=== PATIENT | female | born 1985 | race African-American/Black ===

== ENCOUNTER 2017-05-08 22:09 | Emergency (ER) | payer SELFPAY ==
--- NOTE | 2017-05-08 22:39 | RADIOLOGY REPORT (SQ) ---
EXAM DESCRIPTION: CHEST SINGLE VIEW COMPLETED DATE/TIME: 05/08/2017 10:31 pm REASON FOR STUDY: SOB COMPARISON: None. EXAM PARAMETERS: NUMBER OF VIEWS: One view. TECHNIQUE: Single frontal radiographic view of the chest acquired. RADIATION DOSE: NA LIMITATIONS: None. FINDINGS: LUNGS AND PLEURA: No opacities, masses or pneumothorax. No pleural effusion. MEDIASTINUM AND HILAR STRUCTURES: No masses. Contour normal. HEART AND VASCULAR STRUCTURES: Heart normal in size. Normal vasculature. BONES: No acute findings. HARDWARE: None in the chest. OTHER: No other significant finding. IMPRESSION: NO ACUTE RADIOGRAPHIC FINDING IN THE CHEST. TECHNICAL DOCUMENTATION: JOB ID: [id number] [employer]- All Rights Reserved
[2017-05-08] MEDS ORDERED: LORAZEPAM INJ 2 MG/1 ML VIAL IV ONE (23:10)
--- NOTE | 2017-05-08 23:31 | ER Document Report ---
ED General - General Chief Complaint: Shortness Of Breath Stated Complaint: SHORTNESS OF BREATH Time Seen by Provider: 05/08/17 23:05 Notes: Patient is a 31-year-old female presents with complaint of difficulty breathing. No chest pain. Symptoms started approximately an hour prior to arrival. She said she had similar symptoms several months ago she told it could potentially be anxiety. She is on Depakote shot. She does not smoke. She takes no other medications. She denies any other medical problems. She denies history of asthma. She has not had any wheezing. She denies chest pain. She denies any recent leg pain or leg swelling. No recent surgeries. No other complaints at this time. TRAVEL OUTSIDE OF THE [place] IN LAST 30 DAYS: No - Related Data Allergies/Adverse Reactions: No Known Allergies Allergy (Unverified 05/08/17 22:15) Past Medical History - Social History Smoking Status: Never Smoker Frequency of alcohol use: None Drug Abuse: None Family History: Reviewed & Not Pertinent Patient has suicidal ideation: No Patient has homicidal ideation: No Renal/ Medical History: Denies: Hx Peritoneal Dialysis Review of Systems - Review of Systems Notes: My Normal Review Basic REVIEW OF SYSTEMS: CONSTITUTIONAL : Denies fever, chills, or sweats. Denies recent illness. EENT: Denies eye, ear, throat, or mouth pain or symptoms. Denies nasal or sinus congestion. CARDIOVASCULAR: Denies chest pain. RESPIRATORY: Patient feels short of breath. GASTROINTESTINAL: Denies abdominal pain. Denies nausea, vomiting, or diarrhea. MUSCULOSKELETAL: Denies neck or back pain or joint pain or swelling. SKIN: Denies rash or skin lesions. NEUROLOGICAL: Denies altered mental status or loss of consciousness. Denies headache. Denies weakness or paralysis or loss of use of either side. Denies problems with gait or speech. Denies sensory or motor loss. PSYCHIATRIC: Denies anxiety or stress or depression. ALL OTHER SYSTEMS REVIEWED AND NEGATIVE. Physical Exam - Vital signs Vitals: Temp Pulse Resp BP Pulse Ox 98.3 F 112 H 22 H 148/74 H 100 05/08/17 22:13 05/08/17 22:13 05/08/17 22:13 05/08/17 22:13 05/08/17 22:13 - Notes Notes: General Appearance: Well nourished, alert, cooperative, no acute distress, no obvious discomfort. Patient has some mild tachypnea. She does appear a little bit anxious. Vitals: reviewed, See vital signs table. Head: no swelling or tenderness to the head Eyes: PERRL, EOMI, Conjuctiva clear Mouth: No decreasd moisture Neck: Supple, no neck tenderness Lungs: No wheezing, No rales, No rhonci, No accessory muscle use, good air exchange bilaterally. Heart: tachycardiac rate, Regular rythm, No murmur, no rub Abdomen: Normal BS, soft, No rigidity, No abdominal tenderness, No guarding, no rebound, no abdominal masses, no organomegaly Extremities: strength 5/5 in all extremities, good pulses in all extremities, no swelling or tenderness in the extremities, no edema. Skin: warm, dry, appropriate color, no rash Neuro: speech clear, oriented x 3, normal affect, responds appropriately to questions. Course - Re-evaluation Re-evalutation: 05/09/17 00:23 On reevaluation patient is resting comfortably. I did place her on a monitor. When I was talking to her and she is awake and resting in her room her heart rate is 80s. I going to tell her that everything was negative for heart rate temporarily went up to the low 100s but then came back down to the 80s and 90s. I did obtain a d-dimer because of tachycardia and the fact that she is on Depo -Provera and this was negative. She has no other symptoms or risk factors to suggest PE. She has no chest pain. She has no recent surgeries. No leg pain or leg swelling. No previous history of DVT or PE. She is not a smoker. At this time I suspect this could be related to some stress and anxiety. I will place her on Vistaril. I take I told her to take only as needed. I informed her that might make her sleepy. I encouraged her return to ER if she feels that she has recurrence of her symptoms or feels unwell. Patient agrees with plan will be discharged home. Dictation of this chart was performed using voice recognition software; therefore, there may be some unintended grammatical errors. - Vital Signs Vital signs: Temp Pulse Resp BP Pulse Ox 98.3 F 112 H 21 H 148/74 H 100 05/08/17 22:13 05/08/17 22:13 05/09/17 00:00 05/08/17 22:13 05/09/17 00:00 - Laboratory Result Diagrams: 05/08/17 23:23 05/08/17 23:23 Laboratory results interpreted by me: 05/08/17 23:23 Potassium 3.5 L - EKG Interpretation by Me Additional EKG results interpreted by me: 05/08/17 23:34 EKG is reviewed and interpreted by me. EKG shows normal sinus rhythm with rate [address] segment elevation or depression. No ischemic T-wave inversions. VA interval, QRS duration, QTc intervals are within normal range. No old EKG available for comparison. Discharge - Discharge Clinical Impression: Dyspnea Qualifiers: Dyspnea type: unspecified Qualified Code(s): R06.00 - Dyspnea, unspecified Condition: Good Disposition: HOME, SELF-CARE Instructions: Family Physicians / Practices Additional Instructions: Please take the prescribed medication as needed. Please return to the ER immediately if you have chest pain, worsening difficulty breathing, any wheezing , fevers, or if you feel that you are worsening in anyway. The prescribed medication may make you sleepy so do not drive after taking it. Please follow up with your doctor in 3-4 days for reevaluation. If you do not have a doctor I have provided a lost of local doctors. Prescriptions: Hydroxyzine Pamoate [Vistaril 25 mg Capsule] 25 mg PO TID PRN #20 capsule PRN Reason: Forms: Return to Work
[2017-05-08 23:42] LABS: ABSOLUTE LYMPHOCYTES (AUTO) 1.5 10^3/uL (0.5-4.7); ABSOLUTE MONOCYTES (AUTO) 0.5 10^3/uL (0.1-1.4); ABSOLUTE NEUT (AUTO) 2.3 10^3/uL (1.7-8.2); BASOPHILS % (AUTO) 0.4 % (0-2); EOSINOPHILS % (AUTO) 1.1 % (0-6); HEMATOCRIT 39.3 % (36.0-47.0); HEMOGLOBIN 13.7 g/dL (12.0-15.5); HGB HCT DIFFERENCE 1.8; LYMPHOCYTES % (AUTO) 34.4 % (13-45); MEAN CORPUSCULAR HEMOGLOBIN 32.1 pg (27.0-33.4); MEAN CORPUSCULAR HGB CONC 34.9 g/dL (32.0-36.0); MEAN CORPUSCULAR VOLUME 92 fl (80-97); MONOCYTES % (AUTO) 10.7 % (3-13); RED BLOOD COUNT 4.28 10^6/uL (3.72-5.28); RED CELL DISTRIBUTION WIDTH 12.4 % (11.5-14.0); SEGMENTED NEUTROPHILS % (AUTO) 53.4 % (42-78); WHITE BLOOD COUNT 4.4 10^3/uL (4.0-10.5)
[2017-05-08 23:51] LABS: ALANINE AMINOTRANSFERASE 38 U/L (9-52); ALBUMIN 4.8 g/dL (3.5-5.0); ALKALINE PHOSPHATASE 95 U/L (38-126); ANION GAP 13 (5-19); ASPARTATE AMINO TRANSFERASE 30 U/L (14-36); BILIRUBIN,DIRECT 0.4 mg/dL (0.0-0.4); BILIRUBIN,TOTAL 0.8 mg/dL (0.2-1.3); BLOOD UREA NITROGEN 12 mg/dL (7-20); CALCIUM 10.1 mg/dL (8.4-10.2); CARBON DIOXIDE 25 mmol/L (22-30); CHLORIDE 104 mmol/L (98-107); CREATININE RESULT 0.86 mg/dL (0.52-1.25); GLUCOSE 106 mg/dL (75-110); POTASSIUM 3.5 mmol/L (3.6-5.0); SODIUM 142.4 mmol/L (137-145); TOTAL PROTEIN 7.8 g/dL (6.3-8.2)
[2017-05-09 00:42] VITALS: BP 144/95
--- NOTE | 2017-05-09 07:59 | EKG REPORT ---
SEVERITY:- BORDERLINE ECG - SINUS RHYTHM PROBABLE LEFT ATRIAL ABNORMALITY : Confirmed by: Morteza Milan MD 09-May-2017 07:59:13
== END 2017-05-09 00:44 | disposition home or self-care (01) ==
LOC: ER 22:09
DX: R06.02 Shortness of breath (principal); R00.0 Tachycardia, unspecified; Z79.899 Other long term (current) drug therapy
CPT/HCPCS: 93005; 99285; 96374; 36415; 84703; 85025; 80053; 85379; 71010; 93010; J2060

== ENCOUNTER 2017-07-21 04:22 | Emergency (ER) | payer SELFPAY ==
[2017-07-21] MEDS ORDERED: HYDROXYZINE PAMOATE 25 MG CAPSULE (4 CAP/ER DISP) PO PRN (06:29)
--- NOTE | 2017-07-21 06:33 | ER Document Report ---
ED General - General Chief Complaint: Anxiety Stated Complaint: PANIC ATTACK,ANXIETY Time Seen by Provider: 07/21/17 06:22 TRAVEL OUTSIDE OF THE [place] IN LAST 30 DAYS: No - HPI Patient complains to provider of: Anxiety Notes: Patient coming in for concern of anxiety. Patient states was on anxiety medication before. States she has been out of his medication patient denies any social issues denies any homicidal suicidal ideation patient is resting, lying on the bed with upon my evaluation. - Related Data Allergies/Adverse Reactions: No Known Allergies Allergy (Unverified 05/08/17 22:15) Past Medical History - Social History Smoking Status: Never Smoker Chew tobacco use (# tins/day): No Frequency of alcohol use: Social Drug Abuse: None Family History: Reviewed & Not Pertinent Patient has suicidal ideation: No Patient has homicidal ideation: No Renal/ Medical History: Denies: Hx Peritoneal Dialysis Review of Systems - Review of Systems Constitutional: No symptoms reported EENT: No symptoms reported Cardiovascular: No symptoms reported Respiratory: No symptoms reported Gastrointestinal: No symptoms reported Genitourinary: No symptoms reported Female Genitourinary: No symptoms reported Musculoskeletal: No symptoms reported Skin: No symptoms reported Hematologic/Lymphatic: No symptoms reported Neurological/Psychological: Other -: Yes All other systems reviewed and negative - Anxiety Physical Exam - Vital signs Vitals: Temp Pulse Resp BP Pulse Ox 98.3 F 97 20 151/113 H 100 07/21/17 04:28 07/21/17 04:28 07/21/17 04:28 07/21/17 04:28 07/21/17 04:28 Interpretation: Normal - General General appearance: Appears well, Alert - HEENT Head: Normocephalic, Atraumatic Eyes: Normal Pupils: PERRL - Respiratory Respiratory status: No respiratory distress Chest status: Nontender Breath sounds: Normal Chest palpation: Normal - Cardiovascular Rhythm: Regular Heart sounds: Normal auscultation Murmur: No - Abdominal Inspection: Normal Distension: No distension Bowel sounds: Normal Tenderness: Nontender Organomegaly: No organomegaly - Back Back: Normal, Nontender - Extremities General upper extremity: Normal inspection, Nontender, Normal color, Normal ROM , Normal temperature General lower extremity: Normal inspection, Nontender, Normal color, Normal ROM , Normal temperature, Normal weight bearing. No: Enrrique's sign - Neurological Neuro grossly intact: Yes Cognition: Normal Orientation: AAOx4 Jayne Coma Scale Eye Opening: Spontaneous Jayne Coma Scale Verbal: Oriented Jean Coma Scale Motor: Obeys Commands Jean Coma Scale Total: 15 Speech: Normal Motor strength normal: LUE, RUE, LLE, RLE Sensory: Normal - Psychological Associated symptoms: Normal affect, Normal mood - Skin Skin Temperature: Warm Skin Moisture: Dry Skin Color: Normal Course - Re-evaluation Re-evalutation: 07/21/17 15:29 Patient is homicidal suicidal ideation will discharge patient home at this time on Vistaril. Patient encouraged follow-up with psychiatric providers. - Vital Signs Vital signs: Temp Pulse Resp BP Pulse Ox 98.3 F 78 20 148/101 H 98 07/21/17 04:28 07/21/17 06:38 07/21/17 06:38 07/21/17 06:38 07/21/17 06:38 Discharge - Discharge Clinical Impression: Anxiety Condition: Good Disposition: HOME, SELF-CARE Instructions: Anxiety ([facility]), Insomnia ([facility]) Additional Instructions: Your evaluation today shows no acute signs of infection or critical pathology. To help with her anxiety I will prescribe you Vistaril. He may take 1-2 tablets at nighttime to aid in anxiety and also help with sleeping. Please follow-up with providers listed. Prescriptions: Hydroxyzine Pamoate [Vistaril 25 mg Capsule] 25 - 50 mg PO QHS PRN #20 capsule PRN Reason: Forms: Return to Work
[2017-07-21 06:39] VITALS: BP 148/101
== END 2017-07-21 06:38 | disposition home or self-care (01) ==
LOC: ER 04:22
DX: F41.9 Anxiety disorder, unspecified (principal)
CPT/HCPCS: 99283; J3490

== ENCOUNTER 2017-08-16 19:59 | Emergency (ER) | payer SELFPAY ==
[2017-08-16] MEDS ORDERED: HYDROXYZINE PAMOATE 25 MG CAPSULE PO ONE (21:20)
--- NOTE | 2017-08-16 21:21 | ER Document Report ---
HPI - HPI Patient complains to provider of: anxiety Pain Level: Denies Context: Patient is a 32-year-old female who presents emergency department with an acute anxiety attack. Patient states that she was not sure what her trigger was but that she ran out of her Vistaril so she presented here. She denies any suicidal or homicidal ideations. States she does have an established follow-up appointment at the beginning of August with her new provider. She states that she is not on any long-term chronic medications at home - REPRODUCTIVE LMP: Depo Past Medical History - Social History Smoking Status: Current Every Day Smoker Family History: Reviewed & Not Pertinent Renal/ Medical History: Denies: Hx Peritoneal Dialysis Vertical Provider Document - CONSTITUTIONAL Agree With Documented VS: Yes Notes: PHYSICAL EXAM GENERAL: Alert, interacts well. LUNGS: Clear to auscultation bilaterally, no wheezes, rales, or rhonchi. No respiratory distress. HEART: Regular rate and rhythm. No murmurs, gallops, or rubs. EXTREMITIES: Moves all 4 extremities spontaneously. No edema, radial and dorsalis pedis pulses 2/4 bilaterally. No cyanosis. NEUROLOGICAL: Alert and oriented x4. Normal speech. PSYCH: Normal affect, tearful mood but alert and able to focus and speaking clear sentences. SKIN: Warm, dry, normal turgor. No rashes or lesions noted. - INFECTION CONTROL TRAVEL OUTSIDE OF THE [place] IN LAST 30 DAYS: No - RESPIRATORY O2 Sat by Pulse Oximetry: 100 Course - Re-evaluation Re-evalutation: 08/16/17 21:00 Patient is a 32-year-old female is hemodynamically stable, no acute distress and afebrile. Presentation is consistent with acute on chronic anxiety. Patient denies any suicidal homicidal ideations. has secured follow-up. Will discharge home with a short course of as needed Vistaril otherwise discussed strict return precautions patient is stable for discharge home. - Vital Signs Vital signs: Temp Pulse Resp BP Pulse Ox 98.9 F 97 18 128/84 H 100 08/16/17 20:30 08/16/17 20:30 08/16/17 20:30 08/16/17 20:30 08/16/17 20:30 Discharge - Discharge Clinical Impression: Anxiety Condition: Good Disposition: HOME, SELF-CARE Instructions: Anxiety ([facility]) Prescriptions: Hydroxyzine Pamoate [Vistaril] 25 mg PO BID #15 capsule Referrals: [facility] [Provider Group] - Follow up as needed
[2017-08-16 21:48] VITALS: BP 138/86
== END 2017-08-16 21:48 | disposition home or self-care (01) ==
LOC: ER 19:59
DX: F41.9 Anxiety disorder, unspecified (principal); F17.200 Nicotine dependence, unspecified, uncomplicated
CPT/HCPCS: 99283

== ENCOUNTER 2017-08-30 18:16 | Emergency (ER) | payer SELFPAY ==
--- NOTE | 2017-08-30 19:43 | ER Document Report ---
ED Medical Screen (RME) - General Chief Complaint: Abdominal Pain Stated Complaint: RIGHT SIDE PAIN Time Seen by Provider: 08/30/17 19:42 Notes: pt with abd pain/dysuria/discharge for 2 days TRAVEL OUTSIDE OF THE [place] IN LAST 30 DAYS: No - Related Data Allergies/Adverse Reactions: No Known Allergies Allergy (Verified 08/30/17 18:18) Past Medical History - Social History Chew tobacco use (# tins/day): No Frequency of alcohol use: Occasional Drug Abuse: None Renal/ Medical History: Denies: Hx Peritoneal Dialysis Physical Exam - Vital signs Vitals: Temp Pulse Resp BP Pulse Ox 97.8 F 107 H 20 146/88 H 100 08/30/17 18:34 08/30/17 18:34 08/30/17 18:34 08/30/17 18:34 08/30/17 18:34 Course - Vital Signs Vital signs: Temp Pulse Resp BP Pulse Ox 97.8 F 107 H 20 146/88 H 100 08/30/17 18:34 08/30/17 18:34 08/30/17 18:34 08/30/17 18:34 08/30/17 18:34
[2017-08-30 20:35] LABS: APPEARANCE,URINE SLIGHTLY-CLOUDY; BILIRUBIN,URINE NEGATIVE (NEGATIVE); COLOR,URINE YELLOW; GLUCOSE, URINE NEGATIVE (NEGATIVE); KETONES,URINE TRACE mg/dL (NEGATIVE); LEUKOCYTE ESTERASE,URINE MODERATE (NEGATIVE); NITRITE,URINE NEGATIVE (NEGATIVE); PROTEIN,URINE NEGATIVE (NEGATIVE); UROBILINOGEN,URINE NEGATIVE mg/dL (<2.0)
[2017-08-30] MEDS ORDERED: CIPROFLOXACIN HCL 500 MG TABLET PO ONE (21:12)
[2017-08-30] MEDS ORDERED: IBUPROFEN 800 MG TABLET PO ONE (21:13)
--- NOTE | 2017-08-30 21:14 | ER Document Report ---
HPI - HPI Pain Level: 3 Context: Patient is a 32-year-old female presents emergency department complaining of pyuria, hematuria that started yesterday.She admits to pain with urination, urgency, frequency but denies any flank pain, nausea, vomiting, abdominal pain, diarrhea, fevers or chills. She denies any vaginal discharge, vaginal pain. Previous tubal ligation. Last menstrual period 2 weeks ago Past Medical History - Social History Smoking Status: Never Smoker Chew tobacco use (# tins/day): No Frequency of alcohol use: Occasional Drug Abuse: None Family History: Reviewed & Not Pertinent Patient has suicidal ideation: No Patient has homicidal ideation: No Renal/ Medical History: Denies: Hx Peritoneal Dialysis Vertical Provider Document - CONSTITUTIONAL Agree With Documented VS: Yes Notes: PHYSICAL EXAM GENERAL: Alert, interacts well. LUNGS: Clear to auscultation bilaterally, no wheezes, rales, or rhonchi. No respiratory distress. HEART: Regular rate and rhythm. No murmurs, gallops, or rubs. ABDOMEN: Soft, nondistended, mild suprapubic tenderness. No guarding, rebound, or rigidity.. Bowel sounds present in all 4 quadrants. Female exam deferred EXTREMITIES: Moves all 4 extremities spontaneously. No edema, radial and dorsalis pedis pulses 2/4 bilaterally. No cyanosis. NEUROLOGICAL: Alert and oriented x4. Normal speech. PSYCH: Normal affect, normal mood. SKIN: Warm, dry, normal turgor. No rashes or lesions noted. - INFECTION CONTROL TRAVEL OUTSIDE OF THE [place] IN LAST 30 DAYS: No - RESPIRATORY O2 Sat by Pulse Oximetry: 100 Course - Re-evaluation Re-evalutation: 08/30/17 21:13 Patient is a 32-year-old female is hemodynamically stable, no acute distress and afebrile. Patient presents with symptoms consistent with an acute cystitis. Vitals wnl. No history of fever, flank pain, or constitution symptoms to suggest ascending infection at this time. Patient is well in appearance, tolerating oral intake without difficulty. No focal abdominal tenderness to suggest acute appendicitis, biliary pathology, acute pancreatitis, tubo-ovarian abscesses, or pelvic inflammatory disease. Patient will be started on antibiotics at this time. A culture has been sent. They will be discharged with return precautions and follow-up recommendations. - Vital Signs Vital signs: Temp Pulse Resp BP Pulse Ox 97.8 F 107 H 20 146/88 H 100 08/30/17 18:34 08/30/17 18:34 08/30/17 18:34 08/30/17 18:34 08/30/17 18:34 - Laboratory Laboratory results interpreted by me: 08/30/17 19:47 Urine Ketones TRACE H Urine Blood MODERATE H Ur Leukocyte Esterase MODERATE H Discharge - Discharge Clinical Impression: UTI (urinary tract infection) Qualifiers: Urinary tract infection type: acute cystitis Hematuria presence: with hematuria Qualified Code(s): N30.01 - Acute cystitis with hematuria Condition: Good Disposition: HOME, SELF-CARE Additional Instructions: Your urine shows findings consistent with a urinary tract infection. Please take all the antibiotics as directed even if your symptoms have improved. Please follow-up with your primary care physician as needed. Return to emergency room if you develop fever >101F, persistent vomiting, become lethargic , have severe pain in your sides, or any other symptoms that are concerning to you. Prescriptions: Ciprofloxacin HCl [Cipro 250 mg Tablet] 1 tab PO BID #10 tab Phenazopyridine HCl [Pyridium 200 mg Tablet] 200 mg PO TID #15 tablet Referrals: CAMILLE LY DO [NO LOCAL MD] - Follow up in 3-5 days
[2017-08-30 21:33] VITALS: BP 132/74
== END 2017-08-30 21:33 | disposition home or self-care (01) ==
LOC: ER 18:16
DX: N30.01 Acute cystitis with hematuria (principal); Z98.51 Tubal ligation status
CPT/HCPCS: 81001; 81025; 99284

== ENCOUNTER 2018-01-18 17:05 | Emergency (ER) | payer SELFPAY ==
[2018-01-18] MEDS ORDERED: CLINDAMYCIN HCL 150 MG CAPSULE PO ONE (18:51)
--- NOTE | 2018-01-18 18:57 | ER Document Report ---
ED General - General Chief Complaint: Breast Problem Stated Complaint: BREAST PAIN Time Seen by Provider: 01/18/18 18:15 Mode of Arrival: Ambulatory Information source: Patient TRAVEL OUTSIDE OF THE [place] IN LAST 30 DAYS: No - HPI Notes: Patient is a pleasant 32-year-old black female presents to the emergency department with report of the left breast nipple abscess that she has noticed for the last 2 days. The patient denies any oral contact to the area and reports no other trauma, but she has had her nipples pierced bilaterally for the last 8 months. The patient denies any fever or chills or chest pain or nausea or vomiting. She reports no acute other trauma to the breast region. The patient reports no history of abscess or MRSA exposure. - Related Data Allergies/Adverse Reactions: No Known Allergies Allergy (Verified 01/18/18 17:07) Past Medical History - General Information source: Patient - Social History Smoking Status: Former Smoker Frequency of alcohol use: Rare Drug Abuse: None Lives with: Family Family History: Reviewed & Not Pertinent Patient has suicidal ideation: No Patient has homicidal ideation: No Renal/ Medical History: Denies: Hx Peritoneal Dialysis Review of Systems - Review of Systems -: Yes All other systems reviewed and negative Physical Exam - Vital signs Vitals: Temp Pulse Resp BP Pulse Ox 98.9 F 78 14 132/87 H 100 01/18/18 17:18 01/18/18 17:18 01/18/18 17:18 01/18/18 17:18 01/18/18 17:18 - Notes Notes: Physical exam: HEENT atraumatic normocephalic conjunctiva clear Neck supple nontender no adenopathy Examination of the breasts bilaterally shows no gross evidence for mass or axillary or supraclavicular adenopathy. Patient has bilateral nipple piercing. The right breast is without any focal abnormality. Examination of the left breast shows erythema and a very small 3 mm abscess anterior to the nipple piercing medially. This area is very much subepidermal. No deeper extension noted. Course - Re-evaluation Re-evalutation: 01/18/18 18:54 Following discussion of risks, alternatives, and benefits, the patient agreed to incision and drainage of the superficial breast abscess. The wound area was cleaned with alcohol prep 3 and the piercing itself was cleaned and removed and replaced without any abscess spontaneous drainage, then the abscess was incised very superficially with a #18 needle and minimal amount of purulent material was obtained which was sent for culture and the wound was cleaned again with an alcohol prep. Patient tolerated this well. Complications none. Blood loss negligible. No history of diabetes or deeper extension or systemic infection. Patient was given clindamycin by mouth. 01/18/18 18:55 - Vital Signs Vital signs: Temp Pulse Resp BP Pulse Ox 98.9 F 78 14 132/87 H 100 01/18/18 17:18 01/18/18 17:18 01/18/18 17:18 01/18/18 17:18 01/18/18 17:18 Discharge - Discharge Clinical Impression: Abscess Condition: Stable Disposition: HOME, SELF-CARE Instructions: Abscess ([facility]), Post Incision and Drainage Additional Instructions: Clean the area with diluted hydrogen peroxide once a day. Return to the emergency department in case of fever, chills, worsening redness or swelling. Take ibuprofen as needed for pain. Prescriptions: Clindamycin HCl 300 mg PO TID #24 capsule
[2018-01-18 19:07] VITALS: BP 128/88
== END 2018-01-18 19:06 | disposition home or self-care (01) ==
LOC: ER 17:05
PROC: 0H9UXZZ (ICD-10-PCS; principal; 2018-01-18)
DX: N61.1 Abscess of the breast and nipple (principal); N64.4 Mastodynia
CPT/HCPCS: 87070; 87075; 87077; 87205; 99283

== ENCOUNTER 2018-04-01 17:18 | Emergency (ER) | payer SELFPAY ==
[2018-04-01 17:37] VITALS: BP 108/58
[2018-04-01 18:32] LABS: ABSOLUTE EOSINOPHILS # (AUTO) 0.1 10^3/uL (0.0-0.6); ABSOLUTE MONOCYTES (AUTO) 0.5 10^3/uL (0.1-1.4); BASOPHILS % (AUTO) 0.6 % (0-2); EOSINOPHILS % (AUTO) 1.6 % (0-6); HEMATOCRIT 30.5 % (36.0-47.0); HEMOGLOBIN 10.8 g/dL (12.0-15.5); LYMPHOCYTES % (AUTO) 18.4 % (13-45); MEAN CORPUSCULAR HEMOGLOBIN 31.4 pg (27.0-33.4); MEAN CORPUSCULAR HGB CONC 35.4 g/dL (32.0-36.0); MEAN CORPUSCULAR VOLUME 89 fl (80-97); MONOCYTES % (AUTO) 8.7 % (3-13); PLATELET COUNT 215 10^3/uL (150-450); RED BLOOD COUNT 3.45 10^6/uL (3.72-5.28); RED CELL DISTRIBUTION WIDTH 12.9 % (11.5-14.0); SEGMENTED NEUTROPHILS % (AUTO) 70.7 % (42-78); TOTAL CELLS COUNTED % (AUTO) 100 %; WHITE BLOOD COUNT 5.7 10^3/uL (4.0-10.5)
[2018-04-01 18:47] LABS: APPEARANCE,URINE SLIGHTLY-CLOUDY; BILIRUBIN,URINE NEGATIVE (NEGATIVE); COLOR,URINE YELLOW; GLUCOSE, URINE NEGATIVE (NEGATIVE); KETONES,URINE NEGATIVE (NEGATIVE); LEUKOCYTE ESTERASE,URINE NEGATIVE (NEGATIVE); NITRITE,URINE NEGATIVE (NEGATIVE); PROTEIN,URINE NEGATIVE (NEGATIVE)
--- NOTE | 2018-04-01 19:11 | ER Document Report ---
ED General - General Chief Complaint: Vaginal Bleeding Stated Complaint: ABDOMINAL PAIN Time Seen by Provider: 04/01/18 18:06 Mode of Arrival: Ambulatory Information source: Patient Notes: Is a 32-year-old female who presents to the emergency room with abdominal cramping along with some small amount of vaginal spotting. Patient states that she has had a positive test. She does not know how far along she is. She is 5 para 4. She denies any nausea, vomiting. TRAVEL OUTSIDE OF THE [place] IN LAST 30 DAYS: No - HPI Onset: Last week Onset/Duration: Gradual Quality of pain: No pain Severity: None Pain Level: Denies Associated symptoms: denies: Chest pain, Shortness of breath Exacerbated by: Denies Relieved by: Denies Similar symptoms previously: Yes Recently seen / treated by doctor: No - Related Data Allergies/Adverse Reactions: No Known Allergies Allergy (Verified 01/18/18 17:07) Past Medical History - General Information source: Patient - Social History Smoking Status: Never Smoker Cigarette use (# per day): No Chew tobacco use (# tins/day): No Frequency of alcohol use: None Drug Abuse: None Lives with: Family Family History: Reviewed & Not Pertinent Patient has suicidal ideation: No Patient has homicidal ideation: No - Medical History Medical History: Negative Renal/ Medical History: Denies: Hx Peritoneal Dialysis Surgical Hx: Negative Review of Systems - Review of Systems Constitutional: denies: Chills, Fever EENT: No symptoms reported Cardiovascular: No symptoms reported Respiratory: No symptoms reported Gastrointestinal: No symptoms reported Genitourinary: No symptoms reported Female Genitourinary: See HPI Musculoskeletal: No symptoms reported Skin: No symptoms reported Hematologic/Lymphatic: No symptoms reported Neurological/Psychological: No symptoms reported Physical Exam - Vital signs Vitals: Temp Pulse Resp BP Pulse Ox 98.8 F 86 17 108/58 L 100 04/01/18 17:35 04/01/18 17:35 04/01/18 17:35 04/01/18 17:35 04/01/18 17:35 Notes: Physical exam: GENERAL: She is alert and oriented x3, appears quite comfortable in bed doing work in a book. HEAD: Atraumatic, normocephalic. EYES: Pupils equal round and reactive to light, extraocular movements intact, sclera anicteric, conjunctiva are normal. ENT: TMs normal, nares patent, oropharynx clear without exudates. Moist mucous membranes. NECK: Normal range of motion, supple without obvious mass or JVD. LUNGS: Breath sounds clear to auscultation bilaterally and equal. No wheezes rales or rhonchi. HEART: Regular rate and rhythm without murmurs, rubs or gallops. ABDOMEN: Soft, normoactive bowel sounds. No tenderness to palpation. No guarding, no rebound. No masses appreciated. Side ultrasound does show a viable intrauterine with positive movement. EXTREMITIES: Normal range of motion, no pitting or edema. No clubbing or cyanosis. NEUROLOGICAL: Cranial nerves II through XII grossly intact. Normal speech, moving all extremities. PSYCH: Normal mood, normal affect. SKIN: Warm, Dry, normal turgor, no rashes or lesions noted. Course - Vital Signs Vital signs: Temp Pulse Resp BP Pulse Ox 98.8 F 86 17 108/58 L 100 04/01/18 17:35 04/01/18 17:35 04/01/18 17:35 04/01/18 17:35 04/01/18 17:35 - Laboratory Result Diagrams: 04/01/18 18:18 04/01/18 18:18 Laboratory results interpreted by me: 04/01/18 04/01/18 04/01/18 18:18 18:18 18:18 RBC 3.45 L Hgb 10.8 L Hct 30.5 L Carbon Dioxide 20 L Glucose 63 L Total Protein 6.2 L Beta HCG, Quant 840867.00 H Urine Urobilinogen 4.0 H - Diagnostic Test Radiology reviewed: Image reviewed, Reports reviewed Discharge - Discharge Clinical Impression: , Cramping Condition: Stable Disposition: HOME, SELF-CARE Additional Instructions: Ultrasound shows the baby is 14 weeks gestation. Baby has a good heartbeat and good movement. Your blood work looked good. I would follow-up with the OB doctor: Bring a copy of today's labs with you. Tylenol for cramping is okay. Return to the emergency room for worsening bleeding or worsening pain.
[2018-04-01 19:36] LABS: ALANINE AMINOTRANSFERASE 17 U/L (9-52); ALBUMIN 3.5 g/dL (3.5-5.0); ALKALINE PHOSPHATASE 51 U/L (38-126); ANION GAP 11 (5-19); ASPARTATE AMINO TRANSFERASE 15 U/L (14-36); BILIRUBIN,DIRECT 0.2 mg/dL (0.0-0.4); BILIRUBIN,TOTAL 0.3 mg/dL (0.2-1.3); BLOOD UREA NITROGEN 11 mg/dL (7-20); CALCIUM 9.2 mg/dL (8.4-10.2); CARBON DIOXIDE 20 mmol/L (22-30); CHLORIDE 106 mmol/L (98-107); GLUCOSE 63 mg/dL (75-110); POTASSIUM 3.8 mmol/L (3.6-5.0); SODIUM 137.1 mmol/L (137-145); TOTAL PROTEIN 6.2 g/dL (6.3-8.2)
--- NOTE | 2018-04-01 20:12 | RADIOLOGY REPORT (SQ) ---
EXAM DESCRIPTION: U/S OB LIMITED COMPLETED DATE/TIME: 04/01/2018 7:56 pm REASON FOR STUDY: cramping, spotting: gest age, cervical length COMPARISON: None. TECHNIQUE: Limited transabdominal grayscale ultrasound for evaluation of specific requested obstetri charanjit parameters. LIMITATIONS: None. FINDINGS: CERVICAL LENGTH: 4.6 cm in length Closed. ELSY: Adequate, largest pocket 3 cm. FHR: 158 beats per minute. PRESENTATION: Variable PLACENTA: Developing anteriorly ANATOMY: Not assessed OTHER: Estimated gestational age by multiple measurements cysts 14 weeks 0 days, estimated due date IMPRESSION: LIMITED OBSTETRICAL ULTRASOUND WITH MEASURED PARAMETERS DELINEATED ABOVE. Trimester of : Second trimester - 13 weeks 1 day to 27 weeks 6 days. TECHNICAL DOCUMENTATION: JOB ID: [id number] [email or web address]- All Rights Reserved Reading location - IP/workstation name: [email or web address]
== END 2018-04-01 22:10 | disposition home or self-care (01) ==
LOC: ER 17:18
DX: O26.899 Other specified pregnancy related conditions, unspecified trimester (principal); R10.9 Unspecified abdominal pain; O26.859 Spotting complicating pregnancy, unspecified trimester; Z3A.00 Weeks of gestation of pregnancy not specified
CPT/HCPCS: 36415; 76815; 80053; 81001; 84702; 85025; 86900; 86901; 99284

== ENCOUNTER 2018-07-12 21:12 | Outpatient (CLI) | payer MEDICAID ==
[2018-07-12 21:49] LABS: APPEARANCE,URINE SLIGHTLY-CLOUDY; BILIRUBIN,URINE NEGATIVE (NEGATIVE); COLOR,URINE YELLOW; GLUCOSE, URINE NEGATIVE (NEGATIVE); KETONES,URINE 20 mg/dL (NEGATIVE); LEUKOCYTE ESTERASE,URINE TRACE (NEGATIVE); NITRITE,URINE NEGATIVE (NEGATIVE); PROTEIN,URINE 30 mg/dL (NEGATIVE); URINE SPECIFIC GRAVITY 1.025
[2018-07-12 22:02] LABS: URINE AMPHETAMINES SCREEN NEGATIVE; URINE BARBITURATES SCREEN NEGATIVE; URINE BENZODIAZEPINES SCREEN NEGATIVE; URINE COCAINE SCREEN NEGATIVE; URINE MARIJUANA (THC) SCREEN NEGATIVE; URINE METHADONE SCREEN NEGATIVE; URINE PHENCYCLIDINE SCREEN NEGATIVE
== END 2018-07-12 22:46 | disposition home or self-care (01) ==
LOC: EDSTATUS 21:17 → LC 21:19
PROVIDERS: ATTEND Obstetrics & Gynecology
PROC: 4A1HXCZ Monitoring of Products of Conception, Cardiac Rate, External Approach (ICD-10-PCS; principal; 2018-07-12)
DX: O47.03 False labor before 37 completed weeks of gestation, third trimester (principal); Z3A.28 28 weeks gestation of pregnancy
CPT/HCPCS: 80307; 81001

== ENCOUNTER 2018-09-19 19:13 | Outpatient (CLI) | payer MEDICAID ==
[2018-09-19 19:38] LABS: APPEARANCE,URINE SLIGHTLY-CLOUDY; BILIRUBIN,URINE NEGATIVE (NEGATIVE); COLOR,URINE YELLOW; GLUCOSE, URINE NEGATIVE (NEGATIVE); KETONES,URINE NEGATIVE (NEGATIVE); LEUKOCYTE ESTERASE,URINE TRACE (NEGATIVE); NITRITE,URINE NEGATIVE (NEGATIVE); PROTEIN,URINE 30 mg/dL (NEGATIVE); URINE SPECIFIC GRAVITY 1.027
[2018-09-19 20:06] LABS: URINE AMPHETAMINES SCREEN NEGATIVE; URINE BARBITURATES SCREEN NEGATIVE; URINE BENZODIAZEPINES SCREEN NEGATIVE; URINE COCAINE SCREEN NEGATIVE; URINE MARIJUANA (THC) SCREEN NEGATIVE; URINE METHADONE SCREEN NEGATIVE; URINE PHENCYCLIDINE SCREEN NEGATIVE
--- NOTE | 2018-09-19 22:14 | Non Stress Test Report ---
Non Stress Test Datetime Report Generated by CPN: 09/19/2018 22:14 DEMOGRAPHIC EGA NST: 38.3 INDICATION Indication for Study: Ordered by Provider MONITORING Monitor Explained: Monitor Explained; Test Explained; Patient Verbalized Understanding Time on Monitor: 09/19/2018 20:38 Time off Monitor: 09/19/2018 22:06 NST Duration: 88 NST INTERVENTIONS NST Interventions: PO Hydration; Reposition Patient Physician Notified NST: Dr. Younger BABY A: [id number] BABY A Movement : Present Contraction Frequency : 7-10 FHR Baseline : 135 Accelerations : 15X15 Decelerations : None Variability : Moderate 6-25bpm NST Review: Meets Criteria for Reactive NST NST Review and Verified By : CHIN Ramsay Results: Reactive NST REPORT Report Trigger: Send Report
== END 2018-09-19 22:11 | disposition home or self-care (01) ==
LOC: LC 19:13
PROVIDERS: ATTEND Obstetrics & Gynecology
PROC: 4A1HXCZ Monitoring of Products of Conception, Cardiac Rate, External Approach (ICD-10-PCS; principal; 2018-09-19)
DX: Z34.93 Encounter for supervision of normal pregnancy, unspecified, third trimester (principal)
CPT/HCPCS: 80307; 81005; 84112

== ENCOUNTER 2018-09-25 08:40 | Outpatient (CLI) | payer MEDICAID ==
[2018-09-25 10:28] LABS: APPEARANCE,URINE CLOUDY; BILIRUBIN,URINE NEGATIVE (NEGATIVE); COLOR,URINE YELLOW; GLUCOSE, URINE NEGATIVE (NEGATIVE); KETONES,URINE NEGATIVE (NEGATIVE); LEUKOCYTE ESTERASE,URINE LARGE (NEGATIVE); NITRITE,URINE NEGATIVE (NEGATIVE); PROTEIN,URINE NEGATIVE (NEGATIVE); URINE SPECIFIC GRAVITY 1.009; UROBILINOGEN,URINE NEGATIVE mg/dL (<2.0)
[2018-09-25 10:35] LABS: URINE AMPHETAMINES SCREEN NEGATIVE; URINE BARBITURATES SCREEN NEGATIVE; URINE BENZODIAZEPINES SCREEN NEGATIVE; URINE COCAINE SCREEN NEGATIVE; URINE MARIJUANA (THC) SCREEN NEGATIVE; URINE METHADONE SCREEN NEGATIVE; URINE PHENCYCLIDINE SCREEN NEGATIVE
== END 2018-09-25 09:57 | disposition home or self-care (01) ==
LOC: LC 08:40
PROVIDERS: ATTEND Obstetrics & Gynecology
PROC: 4A1HXCZ Monitoring of Products of Conception, Cardiac Rate, External Approach (ICD-10-PCS; principal; 2018-09-25)
DX: O47.1 False labor at or after 37 completed weeks of gestation (principal); Z3A.39 39 weeks gestation of pregnancy
CPT/HCPCS: 59025; 80307; 81005

== ENCOUNTER 2018-09-25 19:17 | Outpatient (CLI) | payer MEDICAID ==
--- NOTE | 2018-09-25 19:20 | Non Stress Test Report ---
Non Stress Test Datetime Report Generated by CPN: 09/25/2018 19:19 DEMOGRAPHIC EGA NST: 39.2 INDICATION Indication for Study: Ordered by Provider Indication for Study (NST) Other: Labor Check MONITORING Monitor Explained: Monitor Explained; Test Explained; Patient Verbalized Understanding Time on Monitor: 09/25/2018 08:52 Time off Monitor: 09/25/2018 09:46 NST Duration: 54 NST INTERVENTIONS NST Interventions: Reposition Patient Physician Notified NST: Dr. Castaneda BABY A: [id number] BABY A Movement : Present Contraction Frequency : 3-9 FHR Baseline : 130 Accelerations : 15X15 Decelerations : None Variability : Moderate 6-25bpm NST Review: Meets Criteria for Reactive NST NST Review and Verified By : Pankaj Bellavance RN NST Results: Reactive NST REPORT Report Trigger: Send Report
[2018-09-25 19:58] LABS: APPEARANCE,URINE SLIGHTLY-CLOUDY; BILIRUBIN,URINE NEGATIVE (NEGATIVE); COLOR,URINE YELLOW; GLUCOSE, URINE NEGATIVE (NEGATIVE); KETONES,URINE NEGATIVE (NEGATIVE); LEUKOCYTE ESTERASE,URINE NEGATIVE (NEGATIVE); NITRITE,URINE NEGATIVE (NEGATIVE); PROTEIN,URINE NEGATIVE (NEGATIVE); URINE SPECIFIC GRAVITY 1.012; UROBILINOGEN,URINE NEGATIVE mg/dL (<2.0)
[2018-09-25 20:18] LABS: URINE AMPHETAMINES SCREEN NEGATIVE; URINE BARBITURATES SCREEN NEGATIVE; URINE BENZODIAZEPINES SCREEN NEGATIVE; URINE COCAINE SCREEN NEGATIVE; URINE MARIJUANA (THC) SCREEN NEGATIVE; URINE METHADONE SCREEN NEGATIVE; URINE PHENCYCLIDINE SCREEN NEGATIVE
[2018-09-25] MEDS ORDERED: HYDROXYZINE PAMOATE 50 MG CAPSULE PO ONE (21:35)
[2018-09-25] MEDS ORDERED: HYDROXYZINE PAMOATE 50 MG CAPSULE ONE (21:55)
--- NOTE | 2018-09-25 22:35 | Non Stress Test Report ---
Non Stress Test Datetime Report Generated by CPN: 09/25/2018 22:35 DEMOGRAPHIC EGA NST: 39.2 INDICATION Indication for Study: Ordered by Provider VITAL SIGNS Temperature - NST: 97.0 Pulse - NST: 77 RESP - NST: 16 NBPSYS NST: 137 NBPDIA NST: 79 URINE RESULTS Urine Protein, NST: Negative Urine Ketones - NST: Negative Urine Glucose - NST: Negative Urine Blood - NST: Negative MONITORING Monitor Explained: Monitor Explained; Test Explained; Patient Verbalized Understanding Time on Monitor: 09/25/2018 19:39 Time off Monitor: 09/25/2018 21:36 NST Duration: 117 NST INTERVENTIONS NST Interventions: PO Hydration; Reposition Patient; Vibroacoustic Stim; Other NST Interventions Other: popsicle. patient hadnt eaten most of the day Physician Notified NST: Dr Castaneda BABY A Contraction Frequency : 2-7 FHR Baseline : 130 Accelerations : 15X15 Decelerations : None Variability : Moderate 6-25bpm NST Review: Meets Criteria for Reactive NST NST Review and Verified By : Alessandro Esquivel RN NST Results: Reactive NST REPORT Report Trigger: Send Report
== END 2018-09-25 21:57 | disposition home or self-care (01) ==
LOC: LC 19:17
PROVIDERS: ATTEND Obstetrics & Gynecology
PROC: 4A1HXCZ Monitoring of Products of Conception, Cardiac Rate, External Approach (ICD-10-PCS; principal; 2018-09-25)
DX: O47.1 False labor at or after 37 completed weeks of gestation (principal); Z3A.39 39 weeks gestation of pregnancy
CPT/HCPCS: 59025; 81005; 80307; J3490

== ENCOUNTER 2018-10-04 06:40 | Inpatient (IN) | payer MEDICAID ==
[2018-10-04] MEDS ORDERED: RINGERS SOLUTION,LACTATED 300 ML IV ONE (07:47)
[2018-10-04] MEDS ORDERED: OXYTOCIN/NORMAL SALINE 20 UNIT/1,000 ML RTUINJ IV PRN ×2 (07:47→15:08)
[2018-10-04] MEDS ORDERED: RINGERS SOLUTION,LACTATED 1,000 ML IV PRN (07:47)
[2018-10-04] MEDS ORDERED: OXYTOCIN/NORMAL SALINE 20 UNIT/1,000 ML RTUINJ ONE (07:53)
[2018-10-04 08:07] LABS: APPEARANCE,URINE SLIGHTLY-CLOUDY; BILIRUBIN,URINE NEGATIVE (NEGATIVE); COLOR,URINE YELLOW; GLUCOSE, URINE NEGATIVE (NEGATIVE); KETONES,URINE NEGATIVE (NEGATIVE); LEUKOCYTE ESTERASE,URINE MODERATE (NEGATIVE); NITRITE,URINE NEGATIVE (NEGATIVE); PROTEIN,URINE NEGATIVE (NEGATIVE); URINE SPECIFIC GRAVITY 1.009; UROBILINOGEN,URINE NEGATIVE mg/dL (<2.0)
[2018-10-04 08:26] LABS: URINE AMPHETAMINES SCREEN NEGATIVE; URINE BARBITURATES SCREEN NEGATIVE; URINE BENZODIAZEPINES SCREEN NEGATIVE; URINE COCAINE SCREEN NEGATIVE; URINE MARIJUANA (THC) SCREEN NEGATIVE; URINE METHADONE SCREEN NEGATIVE; URINE PHENCYCLIDINE SCREEN NEGATIVE
[2018-10-04 08:33] LABS: ABSOLUTE MONOCYTES (AUTO) 0.4 10^3/uL (0.1-1.4); ABSOLUTE NEUT (AUTO) 2.9 10^3/uL (1.7-8.2); BASOPHILS % (AUTO) 0.3 % (0-2); HEMATOCRIT 32.4 % (36.0-47.0); HEMOGLOBIN 11.5 g/dL (12.0-15.5); LYMPHOCYTES % (AUTO) 22.7 % (13-45); MEAN CORPUSCULAR HEMOGLOBIN 32.9 pg (27.0-33.4); MEAN CORPUSCULAR HGB CONC 35.5 g/dL (32.0-36.0); MEAN CORPUSCULAR VOLUME 93 fl (80-97); MONOCYTES % (AUTO) 9.6 % (3-13); PLATELET COUNT 146 10^3/uL (150-450); RED BLOOD COUNT 3.49 10^6/uL (3.72-5.28); RED CELL DISTRIBUTION WIDTH 13.6 % (11.5-14.0); SEGMENTED NEUTROPHILS % (AUTO) 66.4 % (42-78); TOTAL CELLS COUNTED % (AUTO) 100 %; WHITE BLOOD COUNT 4.3 10^3/uL (4.0-10.5)
[2018-10-04] MEDS ORDERED: PHENYLEPHRINE HCL INJ/PF 10 MG/1 ML SDV ONE (08:58)
[2018-10-04] MEDS ORDERED: FENTANYL CITRATE INJ/PF 100 MCG/2 ML AMPUL ONE (08:58)
[2018-10-04] MEDS ORDERED: BUPIVACAINE HCL 0.25 % INJ/PF (2.5 MG/1 ML) 30 ML VIAL ONE (08:59)
[2018-10-04] MEDS ORDERED: EPHEDRINE SULFATE INJ 50 MG/1 ML AMPULE ONE (08:59)
[2018-10-04] MEDS ORDERED: FENTANYL/BUPIVACAINE/NS/PF 300 MCG/150 ML RTUINJ EPI ONE (08:59)
--- NOTE | 2018-10-04 09:29 | Admission Physical ---
Datetime Report Generated by CPN: 10/04/2018 09:28 CURRENT ADMISSION Chief Complaint: Scheduled Induction of Labor Indication for Induction: Post Dates; Polyhydramnios Admit Impression : No Active Labor Admit Plan: Admit to Unit; Initiate Labor Induction Protocol Admit Plan- Other: ELSY 27 ALLERGIES Medication Allergies: No Medication Allergies: No Known Allergies (09/25/2018) Latex: No Latex Allergies Food Allergies: No Known Allergies Environmental Allergies: No Known Allergies OBSTETRICAL HISTORY EDC: 09/30/2018 00:00 : 5 Para: 4 Term: 4 : 0 SAB: 0 IAB: 0 Ectopic: 0 Livin Cesareans: 0 VBACs: 0 Multiple Births: 0 Gestational Diabetes: No Rh Sensitization: No Incompetent Cervix: No CONRADO: No Infertility: No ART Treatment: No Uterine Anomaly: No IUGR: No Hx Previous C/S: No Macrosomia: No Hx Loss/Stillborn: No PIH: No Hx : No Placenta Previa/Abruption: No Depression/PP Depression: No PTL/PROM: No Post Hemorrhage: No Current Procedures: Ultrasound; NST Obstetrical History Comments: G1- 2006 at 37 weeks, 6lbs 12 oz male G2- 2007 at 37 weeks, 6lbs 8oz male G3- 2009 at 37 weeks, 6lbs male G4- 2011 at 37 weeks, 7lbs 8oz male G5- Current, late to PNC, polyhydramnios SEE RECORDS Alcohol: No Marijuana : No Cocaine: No Other Illicit Drugs: No Cigarettes: Never Smoker. [id number] MEDICAL HISTORY Diabetes: No Blood Transfusion: No Pulmonary Disease (Asthma, TB): No Breast Disease: No Hypertension: No Entry Specialist Surgery: No Heart Disease: No Hosp/Surgery: No Autoimmune Disorder: No Anesthetic Complications: No Kidney Disease: Yes Abnormal Pap Smear: Yes Neuro/Epilepsy: No Psychiatric Disorders: Yes Other Medical Diseases: No Hepatitis/Liver Disease: No Significant Family History: No Varicosities/Phlebitis: No Trauma/Violence : No Thyroid Dysfunction: No Medical History Comments: Anxiety 06/03/18, anemia, abn paps 2007- [facility], 2016- [facility] INFECTIOUS HISTORY Gonorrhea: No Genital Herpes: No Chlamydia: No Tuberculosis: No Syphilis: No Hepatitis: No HIV/AIDS Exposure: No Rash or Viral Illness: No HPV: No Infectious History Comments: BV/yeast - antifngal and antibx prescribed 06/14 (Annotations: Data stored by [facility] on behalf of user) PHYSICAL EXAM General: Normal HEENT: Deferred Neurologic: Normal Thyroid: Deferred Heart: Normal Lungs: Normal Breast: Deferred Back: Deferred Abdomen: Normal Genitourinary Exam: Normal Extremities: Normal DTRs: Deferred Pelvic Type: Adequate Vital Signs: Reviewed VAGINAL EXAM Dilatation: 3 Effacement: 60 Station: -2 MEMBRANES Membranes: Ruptured Amniotic Fluid Color: Clear FETUS A EGA: 40.4 Monitoring: External US FHR- Baseline: 140 Variability: Moderate 6-25bpm Accelerations: 10X10 Decelerations: None Presentation: Vertex Admit Comment: GBS neg late PNC Anemia Polyhydramnios desires BTL PLANS FOR LABOR AND DELIVERY Labor and Delivery: None Pain Management: Epidural Feeding Preference: Formula Benefit of Breast Feed Discussed: Yes Circumcision: N/A INFORMED CONSENT Assignment: Bijan Ferguson MD Signature: with User ID: [email or web address] : with User ID: [email or web address]
[2018-10-04] MEDS ORDERED: OXYTOCIN 10 UNIT/ML VIAL ONE (11:52)
[2018-10-04] MEDS ORDERED: MISOPROSTOL 0.2 MG TABLET ONE (11:52)
[2018-10-04] MEDS ORDERED: LIDOCAINE 1% INJ-PF (10 MG/ML) 30 ML SDV ONE (11:53)
--- NOTE | 2018-10-04 15:04 | Delivery Summary ---
Del Sum A-C Datetime Report Generated by CPN: 10/04/2018 15:03 DELIVERY PERSONNEL DELIVERY PERSONNEL: [id number] Delivery Doctor:: Citlali Dietrich CNM Labor and Delivery Nurse:: KRIS Bal Labor and Delivery Nurse:: Eunice Petty RN Bacteriologist Food/SIDE FRAMER: Lady Rene, [employer] MATERNAL INFORMATION Delivery Anesthesia: Epidural Medications After Delivery: Pitocin Bolus-Please Comment; Pitocin Drip 20 Units/1000ml NSS Estimated Blood Loss (ml): 100 Maternal Complications: None Provider Comments: SVDVF over intact perineum. CARLO with body cord. Infant to mothers abd, cord clamped/cut. Infant handed off for NRP. O2 given. Placenta spont via sawyer, Bleeding minimal, and stablized. Fundus firmed immediately. Pitocin started. Apgars 7,9. LABOR SUMMARY EDC: 09/30/2018 00:00 No. Babies in Womb: 1 Attempted: No Labor Anesthesia: Epidural LABOR INFORMATION Reason for Induction: Post Dates Reason for Induction- Other: poly, postdates Onset of Labor: 10/04/2018 09:30 Complete Dilatation: 10/04/2018 12:28 Oxytocin: Induction Group B Beta Strep: Negative Antibiotics # of Doses: 0 Antibiotics Time of Last Dose: 0 Name of Antibiotic Given: 0 Steroids Given: None Reason Steroids Not Administered: Not Applicable MEMBRANES Membranes Rupture Method: Artificial Rupture of Membranes: 10/04/2018 08:42 Length of Rupture (hr): 3.82 Amniotic Fluid Color: Clear Amniotic Fluid Amount: Small Amniotic Fluid Odor: None STAGES OF LABOR Stage 1 hr: 2 Stage 1 min: 58 Stage 2 hr: 0 Stage 2 min: 3 Stage 3 hr: 0 Stage 3 min: 4 Total Time in Labor hr: 3 Total Time in Labor min: 5 VAGINAL DELIVERY Episiotomy: None Laceration #1: None Laceration Extension #1: N/A Laceration Repair: Not Applicable Laceration Repair Note: none needed Sponge Count Correct: N/A BABY A INFORMATION Infant Delivery Date/Time: 10/04/2018 12:31 Method of Delivery: Vaginal Born in Route : No : N/A Forceps: N/A Vacuum Extraction: N/A Shoulder Dystocia : No PRESENTATION/POSITION BABY A Presentation: Cephalic Cephalic Presentation: Vertex Vertex Position: Right Occipital Anterior Breech Presentation: N/A PLACENTA INFORMATION BABY A Placenta Delivery Time : 10/04/2018 12:35 Placenta Method of Delivery: Spontaneous Placenta Status: Delivered SCORES BABY A Heart Rate 1 min: >100 bpm Resp Effort 1 min: Good Cry Reflex Irritability 1 min: Cough or Sneeze or Pulls Away Muscle Tone 1 min: Some Flexion of Extremities Color 1 min: Blue/Pale Resuscitation Effort 1 min: Tactile Stimulation SCORE 1 MIN: 7 Heart Rate 5 min: >100 bpm Resp Effort 5 min: Good Cry Reflex Irritability 5 min: Cough or Sneeze or Pulls Away Muscle Tone 5 min: Active Motion Color 5 min: Body [place], Extremities Blue Resuscitation Effort 5 min: Tactile Stimulation SCORE 5 MIN: 9 INFANT INFORMATION BABY A Gestational Age at Delivery: 40.4 Gestational Status: Full Term- 39- 40.6 Weeks Infant Outcome : Liveborn Condition : Stable Sex: Female IDENTIFICATION BABY A Infant Verification Date/Time: 10/04/2018 13:05 ID Band Number: [id number] Mother's Name Verified: Yes RN Verifying : Timur Petty RN/D Bellwiliane RN WEIGHT/LENGTH BABY A Infant Birthweight (gm): 3850 Weight (lb): 8 Infant Weight (oz): 8 Length (in): 20.50 Infant Length (cm): 52.07 CORD INFORMATION BABY A No. Cord Vessels: 3 Nuchal Cord : N/A Nuchal Cord- Other: BODY CORD Cord Blood Taken: Yes-For Storage (Mom's Blood type +) Suction: None ASSESSMENT BABY A Infant Complications: Decreased Variability Physical Findings at Delivery: Within Normal Limits Respirations: Appears Normal Skin to Skin: Yes Skin to Skin Time (min): 30 Wood Barrel Reconditioner/ALS Called : No Care By: D Bellavance RN Transferred To: Remains with Mother RESUSCITATION BABY A Resuscitation Effort: Tactile Stimulation; Oxygen; PPV/NCPAP BABY B INFORMATION : N/A SIGNATURES Assignment: Bijan Ferguson MD Signature: with User ID: [email or web address] : with User ID: [email or web address] : I was personally available for consultation and serving as supervising physician for the MLP.
[2018-10-04] MEDS ORDERED: DIBUCAINE 1% OINTMENT 56 GM TP PRN (15:08)
[2018-10-04] MEDS ORDERED: ACETAMINOPHEN WITH CODEINE #3 TABLET PO PRN (15:08)
[2018-10-04] MEDS ORDERED: ZOLPIDEM TARTRATE 5 MG TABLET PO PRN (15:08)
[2018-10-04] MEDS ORDERED: DIPH/PERTUSS(ACELL)/TETANUS VAC/PF 0.5 ML SYR (>=10YO) IM PRN (15:08)
[2018-10-04] MEDS ORDERED: BENZOCAINE/MENTHOL AEROSOL SPRAY 56 ML TOP PRN (15:08)
[2018-10-04] MEDS ORDERED: MEASLES,MUMPS&RUBELLA VACC/PF 0.5 ML VIAL SUBCUT PRN (15:08)
[2018-10-04] MEDS: DOCUSATE SODIUM 100 MG CAPSULE PO SCH (17:21)
[2018-10-04] MEDS: FERROUS SULFATE 325 MG TABLET PO SCH (17:21)
[2018-10-04] MEDS: IBUPROFEN 800 MG TABLET PO SCH (21:38)
[2018-10-05] MEDS: IBUPROFEN 800 MG TABLET PO SCH ×4 (05:30→21:31)
[2018-10-05 06:55] LABS: ABSOLUTE EOSINOPHILS # (AUTO) 0.1 10^3/uL (0.0-0.6); ABSOLUTE LYMPHOCYTES (AUTO) 1.3 10^3/uL (0.5-4.7); ABSOLUTE MONOCYTES (AUTO) 0.8 10^3/uL (0.1-1.4); ABSOLUTE NEUT (AUTO) 5.6 10^3/uL (1.7-8.2); BASOPHILS % (AUTO) 0.2 % (0-2); EOSINOPHILS % (AUTO) 1.3 % (0-6); HEMATOCRIT 33.1 % (36.0-47.0); HEMOGLOBIN 11.6 g/dL (12.0-15.5); LYMPHOCYTES % (AUTO) 17.1 % (13-45); MEAN CORPUSCULAR HGB CONC 34.9 g/dL (32.0-36.0); MEAN CORPUSCULAR VOLUME 95 fl (80-97); MONOCYTES % (AUTO) 10.2 % (3-13); PLATELET COUNT 147 10^3/uL (150-450); RED CELL DISTRIBUTION WIDTH 13.8 % (11.5-14.0); SEGMENTED NEUTROPHILS % (AUTO) 71.2 % (42-78); TOTAL CELLS COUNTED % (AUTO) 100 %; WHITE BLOOD COUNT 7.9 10^3/uL (4.0-10.5)
[2018-10-05] MEDS: SENNOSIDES/DOCUSATE 8.6-50 MG 1 EACH TABLET PO SCH (09:14)
[2018-10-05] MEDS: FERROUS SULFATE 325 MG TABLET PO SCH ×2 (09:14→17:58)
[2018-10-05] MEDS: PRENATAL VITAMIN W DHA CAPSULE PO SCH (09:14)
[2018-10-05] MEDS: DOCUSATE SODIUM 100 MG CAPSULE PO SCH ×2 (09:14→17:58)
[2018-10-05] MEDS: ACETAMINOPHEN WITH CODEINE #3 TABLET PO PRN (12:05)
--- NOTE | 2018-10-05 14:31 | PDOC PROGRESS REPORT ---
Subjective-OB Progress Note for:: 10/05/18 Subjective: 33yo G5 now P5 s/p ppd 1. Pt. ambulating and voiding without difficulty. Reports pain well controlled with medication. Denies any concerns at this time. Physical Exam (OB) Vital Signs: Temp Pulse Resp BP Pulse Ox 98.6 F 85 18 119/78 99 10/04/18 20:00 10/04/18 20:00 10/04/18 20:00 10/04/18 20:00 10/04/18 20:00 Intake & Output 10/04/18 10/05/18 10/06/18 06:59 06:59 06:59 Weight 70.8 kg - General General Appearance: Appears well In distress: None - PIH/Pre-Eclampsia Clonus: Negative Headache: Absent Epigastric Pain: No Visual Changes: No - Episiotomy/Laceration Site Condition: N/A - Lochia Lochia Amount: Scant < 10 ml Lochia Color: Rubra/Red - Abdomen Description: Soft, Round Hernia Present: No Fundal Description: Firm, Midline Fundal Height: u/u - u/2 - Respiratory Respiratory Status: No respiratory distress - Extremities Upper extremity: Normal inspection Lower extremities: Normal inspection - Neurological Cognition: Normal Orientation: AAOx4 - Psychological Associated symptoms: Normal affect, Normal mood Objective-Diagnostic Laboratory: 10/05/18 05:30 10/05/18 05:30 WBC 7.9 RBC 3.50 L Hgb 11.6 L Hct 33.1 L MCV 95 MCH 33.0 MCHC 34.9 RDW 13.8 Plt Count 147 L Seg Neutrophils % 71.2 Lymphocytes % 17.1 Monocytes % 10.2 Eosinophils % 1.3 Basophils % 0.2 Absolute Neutrophils 5.6 Absolute Lymphocytes 1.3 Absolute Monocytes 0.8 Absolute Eosinophils 0.1 Absolute Basophils 0.0 Assessment and Plan(PN) - Assessment and Plan (1) Vaginal delivery Is this a current diagnosis for this admission?: Yes Plan: Routine pp care, monitor for s/s for infection - Time Spent with Patient Time with patient: Less than 15 minutes Medications reviewed and adjusted accordingly: Yes - Disposition Anticipated Discharge: Home Within: within 24 hours
[2018-10-06] MEDS: ACETAMINOPHEN WITH CODEINE #3 TABLET PO PRN (05:37)
[2018-10-06] MEDS: IBUPROFEN 800 MG TABLET PO SCH ×2 (07:27→15:11)
--- NOTE | 2018-10-06 10:20 | PDOC DISCHARGE SUMMARY ---
Final Diagnosis Discharge Date: 10/06/18 - Final Diagnosis (1) Vaginal delivery Is this a current diagnosis for this admission?: Yes Discharge Data - Discharge Medication Home Medications: No Home Medications 09/25/18 Reason(s) for Admission: Induction of Labor, Obstetric Complications Procedures: NST Intrapartum Procedure(s): Spontaneous Vaginal Delivery - Diagnosis Test Laboratory: Temp Pulse Resp BP Pulse Ox 98.2 F 64 18 129/82 H 100 10/06/18 08:21 10/06/18 08:21 10/06/18 08:21 10/06/18 08:21 10/06/18 08:21 10/04/18 10/04/18 10/05/18 06:55 07:50 05:30 RBC 3.49 L 3.50 L Hgb 11.5 L 11.6 L Hct 32.4 L 33.1 L Urine Opiates Screen NEGATIVE - Discharge information/Instructions Discharge Activity: Balance Activity w/Rest, Pelvic Rest Discharge Diet: Regular Disposition: HOME, SELF-CARE Follow up with: [facility] in: 4, Weeks
[2018-10-06] MEDS: FERROUS SULFATE 325 MG TABLET PO SCH ×2 (11:15→17:48)
[2018-10-06] MEDS: DOCUSATE SODIUM 100 MG CAPSULE PO SCH ×2 (11:15→17:48)
[2018-10-06] MEDS: SENNOSIDES/DOCUSATE 8.6-50 MG 1 EACH TABLET PO SCH (11:15)
[2018-10-06] MEDS: PRENATAL VITAMIN W DHA CAPSULE PO SCH (11:16)
[2018-10-06 12:18] VITALS: BP 119/78
== END 2018-10-06 19:08 | disposition home or self-care (01) | DRG 807 ==
LOC: LR 06:40 → 2S 14:44
PROVIDERS: ADMIT Obstetrics & Gynecology; ATTEND Obstetrics & Gynecology
PROC: 10E0XZZ Delivery of Products of Conception, External Approach (ICD-10-PCS; principal; 2018-10-04)
PROC: 3E033VJ Introduction of Other Hormone into Peripheral Vein, Percutaneous Approach (ICD-10-PCS; 2018-10-04)
PROC: 10907ZC Drainage of Amniotic Fluid, Therapeutic from Products of Conception, Via Natural or Artificial Opening (ICD-10-PCS; 2018-10-04)
PROC: 4A1HXCZ Monitoring of Products of Conception, Cardiac Rate, External Approach (ICD-10-PCS; 2018-10-04)
DX: O48.0 Post-term pregnancy (principal); Z37.0 Single live birth; O40.3XX0 Polyhydramnios, third trimester, not applicable or unspecified; O69.89X0 Labor and delivery complicated by other cord complications, not applicable or unspecified; Z3A.40 40 weeks gestation of pregnancy
CPT/HCPCS: 36415; 80307; 81005; 85025; 86592; 86850; 86900; 86901; J2370; J2590; J3010; J3490

== ENCOUNTER 2018-11-10 00:02 | Emergency (ER) | payer MEDICAID ==
[2018-11-10 02:39] VITALS: BP 152/96
[2018-11-10] MEDS ORDERED: IBUPROFEN 600 MG TABLET PO ONE (02:42)
--- NOTE | 2018-11-10 02:43 | ER Document Report ---
ED General - General Chief Complaint: Flu Symptoms Stated Complaint: CHILLS AND HEADACHE Time Seen by Provider: 11/10/18 02:31 Primary Care Provider: GRIFFIN ODELL MD [Primary Care Provider] - Follow up as needed Mode of Arrival: Ambulatory Information source: Patient Notes: 33-year-old female presents with complaint of chills, headache and intermittent numbness to her right hand. Patient currently does not have a headache or numbness. She denies any fever, chills, nausea, vomiting, chest pain, cough, shortness of breath, abdominal pain, dysuria, hematuria TRAVEL OUTSIDE OF THE [place] IN LAST 30 DAYS: No - HPI Onset: Other Onset/Duration: Intermittent, Gone Quality of pain: No pain Severity: None Pain Level: Denies Associated symptoms: None, Chills, Headache Exacerbated by: Denies Relieved by: Denies Similar symptoms previously: Yes Recently seen / treated by doctor: No - Related Data Allergies/Adverse Reactions: No Known Allergies Allergy (Verified 09/25/18 22:37) Past Medical History - General Information source: Patient, [facility] Records - Social History Smoking Status: Current Every Day Smoker Cigarette use (# per day): Yes - 2 Smoking Education Provided: Yes - Smoking cessation counseling was provided for 4 minutes at the bedside Frequency of alcohol use: Occasional Drug Abuse: None Lives with: Family Family History: Reviewed & Not Pertinent Patient has suicidal ideation: No Patient has homicidal ideation: No - Medical History Medical History: Negative Renal/ Medical History: Denies: Hx Peritoneal Dialysis Review of Systems - Review of Systems Notes: REVIEW OF SYSTEMS: CONSTITUTIONAL : Denies fever, or sweats. Denies recent illness. Denies weight loss, recent hospitalizations. EENT: Denies visual changes, eye pain. Denies sore throat, oral lesions, dif ficulty swallowing. CARDIOVASCULAR: Denies chest pain. Denies palpitations. Denies lower extremity edema. RESPIRATORY: Denies cough. Denies shortness of breath, wheezing. GASTROINTESTINAL: Denies abdominal pain or distention. Denies nausea, vomiting, or diarrhea. Denies blood in vomitus, stools, or per rectum. Denies black, tarry stools. Denies constipation. GENITOURINARY: Denies difficulty urinating, painful urination, frequency, blood in urine, or vaginal discharge. MUSCULOSKELETAL: Denies back or neck pain or stiffness. Denies joint pain or swelling. SKIN: Denies rash, lesions or sores. HEMATOLOGIC : Denies easy bruising or bleeding. LYMPHATIC: Denies swollen glands. NEUROLOGICAL: Denies confusion or altered mental status. Denies loss of consciousness. Denies dizziness or lightheadedness. Denies weakness or paralysis. Denies problems difficulty with ambulation, slurred speech. Denies sensory loss, Denies seizures. PSYCHIATRIC: Denies anxiety or stress. Denies depression, suicidal ideation, or homicidal ideation. Denies visual or auditory hallucinations. Physical Exam - Vital signs Vitals: Temp Pulse Resp BP Pulse Ox 98.6 F 73 17 186/112 H 100 11/10/18 00:07 11/10/18 00:07 11/10/18 00:11/10/18 00:11/10/18 00:07 - Notes Notes: PHYSICAL EXAMINATION: GENERAL: Well-appearing, well-nourished and in no acute distress. HEAD: Atraumatic, normocephalic. EYES: Pupils equal round and reactive to light, extraocular movements intact, conjunctiva are normal. ENT: Nares patent, oropharynx clear without exudates. Moist mucous membranes. NECK: Normal range of motion, supple without lymphadenopathy LUNGS: Breath sounds clear to auscultation bilaterally and equal. No wheezes rales or rhonchi. HEART: Regular rate and rhythm without murmurs ABDOMEN: Soft, nontender, nondistended abdomen. No guarding, no rebound. No masses appreciated. Female : deferred Musculoskeletal: Normal range of motion, no pitting or edema. No cyanosis. NEUROLOGICAL: Mental status; alert and oriented x3. Cranial nerves II through XII intact. Sensation intact to sharp/dull differentiation in all extremities. Motor; normal tone. No abnormal movements appreciated. No pronator drift. Strength tested and 5/5 in bilateral wrist flexion/extension, elbow flexion/extension, shoulder abduction, straight leg raise, knee flexion/extension, ankle dorsiflexion/plantar flexion. Patient ambulates with a steady gait. Coordination; no ataxia. Finger to nose and heel to [place] testing intact bilaterally. Reflexes; brachial radialis, biceps, and patellar reflexes within normal limits and symmetric bilaterally. Babinski with downgoing toes bilaterally. PSYCH: Normal mood, normal affect. SKIN: Warm, Dry, normal turgor, no rashes or lesions noted. Course - Re-evaluation Re-evalutation: Temp Pulse Resp BP Pulse Ox 98.6 F 73 17 152/96 H 100 11/10/18 00:07 11/10/18 00:07 11/10/18 00:07 11/10/18 01:40 11/10/18 00:07 11/11/18 05:21 33-year-old healthy female presents with complaint of intermittent chills, intermittent headache and intermittent numbness of her right upper extremity which none of the symptoms are currently present. Vital signs reviewed and patient's initial blood pressure is elevated but repeat blood pressure is 152/96. Patient has a completely normal neurologic and physical exam. Patient was discharged home with a prescription for Motrin for her headache if it reoccurs. - Vital Signs Vital signs: Temp Pulse Resp BP Pulse Ox 98.6 F 73 17 152/96 H 100 11/10/18 00:07 11/10/18 00:07 11/10/18 00:07 11/10/18 01:40 11/10/18 00:07 Discharge - Discharge Clinical Impression: Chills (without fever) Headache Qualifiers: Headache type: unspecified Headache chronicity pattern: unspecified pattern Intractability: not intractable Qualified Code(s): R51 - Headache Hand paresthesia Qualifiers: Laterality: right Qualified Code(s): R20.2 - Paresthesia of skin Condition: Good Disposition: HOME, SELF-CARE Instructions: Headache ([facility]), Numbness or Paresthesia ([facility]) Additional Instructions: Your vital signs here are normal except for a mildly elevated blood pressure reading. Please follow-up with your primary care physician to recheck this. Follow up with your [id number] hours for further care or return to the ED IMMEDIATELY if symptoms worsen or you have any concerns. If you cannot afford to follow up with your primary care physician a list of low cost clinics have been provided at the end of your discharge papers as well. Most prescribed medications have multiple side effects. The safest thing to do is when filling your prescription speak to your pharmacist regarding possible interactions with your normal home medications and over the counter medications such as Ibuprofen, Tylenol, Benadryl. If you experience any symptoms that cause you discomfort or concern you should discontinue the medication immediately and return to the emergency room or call your primary care physician. Regarding Blood Pressure: Your blood pressure was noted to be greater than 120/80 at least once in the emergency room today. It is recommended that you follow-up with her primary care physician in the next week for repeat blood pressure check. The Centers for Medicare and Medicaid Services has specific recommendations regarding a person's blood pressure. There are several lifestyle modifications that are recommended in order to help lower your blood pressure. These include: Quitting smoking if you smoke. Reducing the amount of sodium in your diet. Getting regular exercise Limiting alcohol to no more than 2 drinks a day for men and one drink a day for women. Eating a healthy diet, including more fruits and vegetables, low fat dairy products, less saturated and total fat. Losing weight if you are overweight. FOLLOW-UP: Call your doctor's office and let them know your blood pressure was elevated and you were advised to get your blood pressure checked in the above time-line. If you are unable to get into your doctor's office in this time period, you can follow-up with a new physician (I have left the numbers below for a few primary care [facility]) or return to the ER. PRIMARY CARE PHYSICIANS: Dr. Letha Burnett [address], [place] [address] [phone] Dr Nina Address: [address] [place] [address] [place] [address] Dr Babin Address: [address] [place] [address] [place] [address] Prescriptions: Ibuprofen [Motrin 600 Mg Tablet] 600 mg PO TID #15 tablet Metoclopramide HCl [Reglan 10 mg Tablet] 1 tab PO ASDIR PRN #25 tablet PRN Reason: Forms: Elevated Blood Pressure Referrals: GRIFFIN ODELL MD [Primary Care Provider] - Follow up as needed
== END 2018-11-10 03:03 | disposition home or self-care (01) ==
LOC: ER 00:02
DX: R51 Headache (principal); R68.83 Chills (without fever); R20.0 Anesthesia of skin; F17.210 Nicotine dependence, cigarettes, uncomplicated; Z71.6 Tobacco abuse counseling
CPT/HCPCS: 99283; 99406

== ENCOUNTER 2019-04-07 17:52 | Emergency (ER) | payer MEDICAID ==
--- NOTE | 2019-04-07 18:30 | ER Document Report ---
ED Medical Screen (RME) - General Chief Complaint: Weakness Stated Complaint: EMOTIONAL COMPLAINT Time Seen by Provider: 04/07/19 18:28 Primary Care Provider: GRIFFIN ODELL MD [Primary Care Provider] - Follow up as needed TRAVEL OUTSIDE OF THE [place] IN LAST 30 DAYS: No - HPI Notes: 04/07/19 18:28 Patient is a 33-year-old female who presents complaining of mild general weakn ess that started yesterday feeling "off." She is otherwise able to eat and drink without difficulty. She is urinating normally and having normal bowel movements. She does not have any concern of pain anywhere. Denies drug allergies. Patient states that she does have a history of anxiety, but does not feel depressed. No SI/HI. No visual or auditory hallucinations. Denies any drug use. I have treated and performed a rapid initial assessment of this patient. A comprehensive ED assessment and evaluation of the patient, analysis of test results and completion of medical decision making process will be conducted by additional ED providers. PHYSICAL EXAMINATION: GENERAL: Well-appearing, well-nourished and in no acute distress. A&Ox4. Answers questions appropriately. Lungs: CTAB CV: RRR Neuro: cranial nerves grossly intact - Related Data Allergies/Adverse Reactions: No Known Allergies Allergy (Verified 09/25/18 22:37) Past Medical History Renal/ Medical History: Denies: Hx Peritoneal Dialysis Physical Exam - Vital signs Vitals: Temp Pulse Resp BP Pulse Ox 98.3 F 91 20 145/91 H 96 04/07/19 17:58 04/07/19 17:58 04/07/19 17:58 04/07/19 17:58 04/07/19 17:58 Course - Vital Signs Vital signs: Temp Pulse Resp BP Pulse Ox 98.3 F 91 20 145/91 H 96 04/07/19 17:58 04/07/19 17:58 04/07/19 17:58 04/07/19 17:58 04/07/19 17:58 Doctor's Discharge - Discharge Referrals: GRIFFIN ODELL MD [Primary Care Provider] - Follow up as needed
[2019-04-07 19:13] LABS: ABSOLUTE EOSINOPHILS # (AUTO) 0.1 10^3/uL (0.0-0.6); ABSOLUTE LYMPHOCYTES (AUTO) 1.2 10^3/uL (0.5-4.7); ABSOLUTE MONOCYTES (AUTO) 0.3 10^3/uL (0.1-1.4); ABSOLUTE NEUT (AUTO) 2.7 10^3/uL (1.7-8.2); BASOPHILS % (AUTO) 0.8 % (0-2); EOSINOPHILS % (AUTO) 1.4 % (0-6); HEMATOCRIT 38.5 % (36.0-47.0); HEMOGLOBIN 12.9 g/dL (12.0-15.5); LYMPHOCYTES % (AUTO) 27.3 % (13-45); MEAN CORPUSCULAR HEMOGLOBIN 30.2 pg (27.0-33.4); MEAN CORPUSCULAR HGB CONC 33.6 g/dL (32.0-36.0); MEAN CORPUSCULAR VOLUME 90 fl (80-97); MONOCYTES % (AUTO) 7.8 % (3-13); PLATELET COUNT 221 10^3/uL (150-450); RED BLOOD COUNT 4.27 10^6/uL (3.72-5.28); RED CELL DISTRIBUTION WIDTH 12.8 % (11.5-14.0); SEGMENTED NEUTROPHILS % (AUTO) 62.7 % (42-78); TOTAL CELLS COUNTED % (AUTO) 100 %; WHITE BLOOD COUNT 4.2 10^3/uL (4.0-10.5)
[2019-04-07 19:17] LABS: APPEARANCE,URINE SLIGHTLY-CLOUDY; BILIRUBIN,URINE NEGATIVE (NEGATIVE); COLOR,URINE YELLOW; GLUCOSE, URINE NEGATIVE (NEGATIVE); KETONES,URINE 20 mg/dL (NEGATIVE); PROTEIN,URINE NEGATIVE (NEGATIVE); URINE SPECIFIC GRAVITY 1.025
--- NOTE | 2019-04-07 19:20 | ER Document Report ---
ED General - General Chief Complaint: Weakness Stated Complaint: EMOTIONAL COMPLAINT Time Seen by Provider: 04/07/19 18:28 Primary Care Provider: GRIFFIN ODELL MD [ACTIVE STAFF] - Follow up in 3-5 days Mode of Arrival: Ambulatory Information source: Patient Notes: This 33-year-old female presents emergency department with complaints of feeling weak chills just feeling off for the past 3 days. She reports she is not sleeping well. She reports she had the same symptoms when she is . Her baby is now 6 months old. She denies fever vomiting diarrhea. She denies pain with void. She denies vaginal discharge. She denies urinary frequency. She reports she was seen in the emergency department a while ago and told she may have anxiety. No complaints of suicidal or homicidal ideations. TRAVEL OUTSIDE OF THE [place] IN LAST 30 DAYS: No - HPI Onset: Other - 3 days Onset/Duration: Persistent Quality of pain: No pain Associated symptoms: Chills, Weakness Exacerbated by: Denies Relieved by: Denies Similar symptoms previously: Yes Recently seen / treated by doctor: No - Related Data Allergies/Adverse Reactions: No Known Allergies Allergy (Verified 09/25/18 22:37) Past Medical History - General Information source: Patient - Social History Smoking Status: Never Smoker Chew tobacco use (# tins/day): No Frequency of alcohol use: None Drug Abuse: None Lives with: Family Family History: Reviewed & Not Pertinent Patient has suicidal ideation: No Patient has homicidal ideation: No - Medical History Medical History: Negative Renal/ Medical History: Denies: Hx Peritoneal Dialysis Past Surgical History: Reports: Hx Gynecologic Surgery Review of Systems - Review of Systems Notes: Review HPI for review of systems., All other systems negative Physical Exam - Vital signs Vitals: Temp Pulse Resp BP Pulse Ox 98.3 F 91 20 145/91 H 96 04/07/19 17:58 04/07/19 17:58 04/07/19 17:58 04/07/19 17:58 04/07/19 17:58 - Notes Notes: PHYSICAL EXAMINATION: GENERAL: Well-appearing and in no acute distress HEAD: Atraumatic, normocephalic. EYES: Pupils equal round , extraocular movements intact, sclera anicteric, conjunctiva are normal. ENT: nares patent, Moist mucous membranes. NECK: Normal range of motion, supple without lymphadenopathy LUNGS: CTAB and equal. No wheezes rales or rhonchi. HEART: Regular rate and rhythm without murmurs ABDOMEN: Soft, no tenderness. No guarding, no rebound EXTREMITIES: Normal range of motion, NEUROLOGICAL: Cranial nerves grossly intact. PSYCH: Normal mood, normal affect. SKIN: Warm, Dry, normal turgor, no rashes or lesions noted Course - Re-evaluation Re-evalutation: 04/07/19 20:14 This 33-year-old female presents emergency department with complaints of weakness chills does not feel right for the past few days. Denies fever vomiting diarrhea reports she has not had her menses for the past 4 months. Denies pain with void. Denies urinary frequency. Labs unremarkable but UA does show positive nitrite. Patient will be treated with Macrobid. She is instructed on these results. She was encouraged to follow-up with primary care provider within 1 week for recheck. She verbalized understanding to all instructions. 04/07/19 18:40 04/07/19 18:40 MCV 90 fl (80-97) 04/07/19 18:40 MCH 30.2 pg (27.0-33.4) 04/07/19 18:40 MCHC 33.6 g/dL (32.0-36.0) 04/07/19 18:40 RDW 12.8 % (11.5-14.0) 04/07/19 18:40 Seg Neutrophils % 62.7 % (42-78) 04/07/19 18:40 Chloride 104 mmol/L (98-107) 04/07/19 18:40 Carbon Dioxide 27 mmol/L (22-30) 04/07/19 18:40 Anion Gap 6 (5-19) 04/07/19 18:40 Est GFR ( Amer) > 60 (>60) 04/07/19 18:40 Glucose 85 mg/dL (75-110) 04/07/19 18:40 Calcium 9.6 mg/dL (8.4-10.2) 04/07/19 18:40 Total Bilirubin 0.6 mg/dL (0.2-1.3) 04/07/19 18:40 AST 19 U/L (14-36) 04/07/19 18:40 Alkaline Phosphatase 74 U/L (38-126) 04/07/19 18:40 Total Protein 7.2 g/dL (6.3-8.2) 04/07/19 18:40 Albumin 4.3 g/dL (3.5-5.0) 04/07/19 18:40 TSH 0.48 uIU/mL (0.47-4.68) 04/07/19 18:40 Urine Color YELLOW 04/07/19 18:40 Urine Appearance SLIGHTLY-CLOUDY 04/07/19 18:40 Urine pH 6.0 (5.0-9.0) 04/07/19 18:40 Ur Specific [place] 1.025 04/07/19 18:40 Urine Protein NEGATIVE mg/dL (NEGATIVE) 04/07/19 18:40 Urine Glucose (UA) NEGATIVE mg/dL (NEGATIVE) 04/07/19 18:40 Urine Ketones 20 mg/dL (NEGATIVE) H 04/07/19 18:40 Urine Blood NEGATIVE (NEGATIVE) 04/07/19 18:40 Urine RBC (Auto) 2 /HPF 04/07/19 18:40 - Vital Signs Vital signs: Temp Pulse Resp BP Pulse Ox 98.2 F 76 16 132/82 H 100 04/07/19 20:40 04/07/19 20:40 04/07/19 20:40 04/07/19 20:40 04/07/19 20:40 - Laboratory Result Diagrams: 04/07/19 18:40 04/07/19 18:40 Laboratory results interpreted by me: 04/07/19 18:40 Urine Ketones 20 H Urine Nitrite (Reflex) POSITIVE H Urine Urobilinogen 4.0 H Leukocyte Esterase Rfl SMALL H Urine Ascorbic Acid 20 H Discharge - Discharge Clinical Impression: Weakness, UTI (urinary tract infection) Condition: Stable Disposition: HOME, SELF-CARE Instructions: Nitrofurantoin ([facility]), Urinary Tract Infection ([facility]) Additional Instructions: *You have been evaluated for pain while voiding, UTI *Take medication as prescribed *Push fluids *Follow up with your primary care provider *Plan urine recheck in one week *Return to ED for worsening condition, changes, needs Prescriptions: Nitrofurantoin/Nitrofuran Mac [Macrobid 100 mg Capsule] 100 mg PO BID #20 capsule Referrals: GRIFFIN ODELL MD [ACTIVE STAFF] - Follow up in 3-5 days
[2019-04-07 19:38] LABS: ALBUMIN 4.3 g/dL (3.5-5.0); ALKALINE PHOSPHATASE 74 U/L (38-126); ANION GAP 6 (5-19); ASPARTATE AMINO TRANSFERASE 19 U/L (14-36); BILIRUBIN,TOTAL 0.6 mg/dL (0.2-1.3); BLOOD UREA NITROGEN 15 mg/dL (7-20); CALCIUM 9.6 mg/dL (8.4-10.2); CARBON DIOXIDE 27 mmol/L (22-30); CHLORIDE 104 mmol/L (98-107); GLUCOSE 85 mg/dL (75-110); POTASSIUM 3.9 mmol/L (3.6-5.0); TOTAL PROTEIN 7.2 g/dL (6.3-8.2)
[2019-04-07] MEDS ORDERED: NITROFURANTOIN MONOHYD/M-CRYST 100 MG CAPSULE PO ONE (20:10)
[2019-04-07 20:48] VITALS: BP 132/82
== END 2019-04-07 20:40 | disposition home or self-care (01) ==
LOC: ER 17:52
DX: N39.0 Urinary tract infection, site not specified (principal); R53.1 Weakness; R68.83 Chills (without fever)
CPT/HCPCS: 99283; 36415; 87086; 84443; 85025; 81025; 87088; 80053; 81001; 87186; J3490; J8499

== ENCOUNTER 2019-05-13 08:28 | Emergency (ER) | payer SELFPAY ==
[2019-05-13 08:40] VITALS: BP 129/82
--- NOTE | 2019-05-13 09:05 | ER Document Report ---
HPI - HPI Patient complains to provider of: std exposure Time Seen by Provider: 05/13/19 08:58 Onset: Other Quality of pain: No pain Pain Level: Denies Context: 33-year-old female sexually active with one partner does not use condoms presents for possible STD. She reports foul odor with voiding but denies fever vomiting diarrhea. Denies vaginal discharge. Denies abdominal pain. Reports h er partner came in and was treated for STD but he told her he was negative. She just wants to be sure because he did have some penile discharge. Associated Symptoms: None Exacerbated by: Denies Relieved by: Denies Similar symptoms previously: No Recently seen / treated by doctor: No - REPRODUCTIVE Reproductive: DENIES: : Past Medical History - General Information source: Patient Last Menstrual Period: March - Social History Smoking Status: Never Smoker Chew tobacco use (# tins/day): No Frequency of alcohol use: Social Drug Abuse: None Family History: Reviewed & Not Pertinent Patient has suicidal ideation: No Patient has homicidal ideation: No - Medical History Medical History: Negative Renal/ Medical History: Denies: Hx Peritoneal Dialysis Surgical Hx: Negative Past Surgical History: Reports: Hx Gynecologic Surgery Vertical Provider Document - CONSTITUTIONAL Agree With Documented VS: Yes Exam Limitations: No Limitations General Appearance: WD/WN, No Apparent Distress - INFECTION CONTROL TRAVEL OUTSIDE OF THE [place] IN LAST 30 DAYS: No - HEENT HEENT: Atraumatic, Normocephalic - NECK Neck: Supple - RESPIRATORY Respiratory: Breath Sounds Normal, No Respiratory Distress - CARDIOVASCULAR Cardiovascular: Regular Rate - GI/ABDOMEN Gastrointestinal: Abdomen Soft, Abdomen Non-Tender - REPRODUCTIVE Female Genitalia: Normal Inspection. negative: CMT, Adnexal Pain-Right, Adnexal Pain-Left - BACK Back: Normal Inspection. negative: CVA Tenderness-Right, CVA Tenderness-Left - MUSCULOSKELETAL/EXTREMETIES Musculoskeletal/Extremeties: MAEW, FROM - NEURO Level of Consciousness: Awake, Alert, Appropriate Motor/Sensory: No Motor Deficit - DERM Integumentary: Warm, Dry Course - Re-evaluation Re-evalutation: 05/13/19 09:04 [age]-year-old female presents emergency department with complaints of possible STD. Reports possible exposure from her partner. Denies all symptoms such as fever vomiting diarrhea vaginal discharge pain with void. But patient reports foul odor with voiding. Patient was instructed on pelvic and timeframe for GC chlamydia results. She was instructed that she can wait for results be treated prophylactically for STDs or leave and be called back for treatment if cultures are positive. 05/13/19 10:38 Patient opted to be treated for both gonorrhea and chlamydia prophylactically. She was instructed on culture nurse contact information. She was also inst ructed on Flagyl for BV. Patient verbalized understanding to all medications. She was instructed to follow-up with health department or [employer] for recheck within 1 week she verbalized understanding. Dictation of this chart was performed using voice recognition software; therefore, there may be some unintended grammatical errors. - Vital Signs Vital signs: Temp Pulse Resp BP Pulse Ox 98.8 F 86 18 129/82 H 100 05/13/19 08:33 05/13/19 08:33 05/13/19 08:33 05/13/19 08:33 05/13/19 08:33 Procedures - Pelvic Exam Pelvic exam Cultures obtained: Yes Wet prep obtained: Yes Herpes culture obtained: No POC sent to lab: No Foreign body removed: No Bimanual exam performed: Yes Witnessed by: bennett pct Discharge - Discharge Clinical Impression: STD exposure, Bacterial vaginosis Condition: Stable Disposition: HOME, SELF-CARE Instructions: Azithromycin ([facility]), Chlamydia ([facility]), Gonorrhea ([facility]), Metronidazole ([facility]), [facility], Rocephin ([facility]), Vaginosis, Bacterial ([facility]) Additional Instructions: *You have been evaluated for vaginal odor, STD exposure, bacterial vaginosis Your STD cultures are pending. You have been treated prophylactically for gonorrhea and chlamydia with Rocephin and Zithromax. You may call the culture nurse at [phone] Wednesday through Wednesday 8 AM to 4 PM for your results. *Take medication as prescribed for Bacterial vaginosis *Follow up with your [employer] or the health department for recheck in 1 week *Avoid sexual intercourse until follow up *Return to ED for worsening condition, changes, needs Prescriptions: Metronidazole [Flagyl 500 mg Tablet] 500 mg PO BID #20 tablet Forms: Elevated Blood Pressure
[2019-05-13 09:37] LABS: APPEARANCE,URINE SLIGHTLY-CLOUDY; BILIRUBIN,URINE NEGATIVE (NEGATIVE); COLOR,URINE YELLOW; GLUCOSE, URINE NEGATIVE (NEGATIVE); KETONES,URINE NEGATIVE (NEGATIVE); LEUKOCYTE ESTERASE,URINE NEGATIVE (NEGATIVE); NITRITE,URINE POSITIVE (NEGATIVE); PROTEIN,URINE NEGATIVE (NEGATIVE); URINE SPECIFIC GRAVITY 1.018; UROBILINOGEN,URINE NEGATIVE mg/dL (<2.0)
[2019-05-13 10:02] LABS: BACTERIA (WET MOUNT) 3+ BACTERIA SEEN; EPITHELIALS (WET MOUNT) 4+ EPITHELIALS SEEN; T.VAGINALIS (WET MOUNT) NO TRICHOMONAS SEEN; WBCS (WET MOUNT) 1+ WBCS SEEN; YEAST (WET MOUNT) NO YEAST SEEN
[2019-05-13] MEDS ORDERED: METRONIDAZOLE 500 MG TABLET PO ONE (10:26)
[2019-05-13] MEDS ORDERED: CEFTRIAXONE INJ 250 MG VIAL IM ONE (10:26)
[2019-05-13] MEDS ORDERED: AZITHROMYCIN 250 MG TABLET PO ONE (10:27)
[2019-05-13] MEDS ORDERED: LIDOCAINE 1% INJ-PF (10 MG/ML) 30 ML SDV INJ ONE (10:27)
[2019-05-13 11:02] LABS: CHLAM PCR NOT DETECTED (NOT DETECT)
== END 2019-05-13 11:00 | disposition home or self-care (01) ==
LOC: ER 08:28
DX: N76.0 Acute vaginitis (principal); B96.89 Other specified bacterial agents as the cause of diseases classified elsewhere; Z20.2 Contact with and (suspected) exposure to infections with a predominantly sexual mode of transmission; R39.198 Other difficulties with micturition
CPT/HCPCS: 99283; 96372; 87210; 81025; 81001; 87491; 87591; J3490; J0696

== ENCOUNTER 2019-07-08 12:54 | Emergency (ER) | payer SELFPAY ==
--- NOTE | 2019-07-08 13:10 | ER Document Report ---
ED Medical Screen (RME) - General Chief Complaint: Vaginal Discharge Stated Complaint: vaginal Time Seen by Provider: 07/08/19 13:04 TRAVEL OUTSIDE OF THE [place] IN LAST 30 DAYS: No - HPI Notes: 07/08/19 13:10 Patient is a 33-year-old female no significant past medical history who presents complaint of vaginal discharge, odor, intermittent bleeding over the past couple days. She is urinating normally and having normal bowel movements. No fever. No abdominal pain otherwise. I have treated and performed a rapid initial assessment of this patient. A comprehensive ED assessment and evaluation of the patient, analysis of test results and completion of medical decision making process will be conducted by additional ED providers. PHYSICAL EXAMINATION: GENERAL: Well-appearing, well-nourished and in no acute distress. A&Ox4. Answers questions appropriately. Abdomen: Limited exam in triage, but grossly nontender and soft throughout. - Related Data Allergies/Adverse Reactions: No Known Allergies Allergy (Verified 09/25/18 22:37) Past Medical History Renal/ Medical History: Denies: Hx Peritoneal Dialysis Past Surgical History: Reports: Hx Gynecologic Surgery Physical Exam - Vital signs Vitals: Temp Pulse Resp BP Pulse Ox 97.8 F 84 16 131/87 H 100 07/08/19 13:03 07/08/19 13:03 07/08/19 13:03 07/08/19 13:03 07/08/19 13:03 Course - Vital Signs Vital signs: Temp Pulse Resp BP Pulse Ox 97.8 F 84 16 131/87 H 100 07/08/19 13:03 07/08/19 13:03 07/08/19 13:03 07/08/19 13:03 07/08/19 13:03
[2019-07-08 14:02] LABS: BACTERIA (WET MOUNT) 3+ BACTERIA SEEN; EPITHELIALS (WET MOUNT) 3+ EPITHELIALS SEEN; T.VAGINALIS (WET MOUNT) NO TRICHOMONAS SEEN; WBCS (WET MOUNT) 1+ WBCS SEEN; YEAST (WET MOUNT) NO YEAST SEEN
[2019-07-08 14:21] LABS: APPEARANCE,URINE CLEAR; BILIRUBIN,URINE NEGATIVE (NEGATIVE); COLOR,URINE YELLOW; GLUCOSE, URINE NEGATIVE (NEGATIVE); KETONES,URINE TRACE mg/dL (NEGATIVE); PROTEIN,URINE NEGATIVE (NEGATIVE); URINE SPECIFIC GRAVITY 1.025; UROBILINOGEN,URINE NEGATIVE mg/dL (<2.0)
[2019-07-08] MEDS ORDERED: CEFTRIAXONE INJ 250 MG VIAL IM ONE (14:23)
[2019-07-08] MEDS ORDERED: LIDOCAINE 1% INJ (10 MG/ML) 10 ML MDV INJ ONE (14:23)
[2019-07-08] MEDS ORDERED: AZITHROMYCIN 250 MG TABLET PO ONE (14:23)
--- NOTE | 2019-07-08 14:36 | ER Document Report ---
ED General - General Chief Complaint: Vaginal Discharge Stated Complaint: vaginal Time Seen by Provider: 07/08/19 13:04 Primary Care Provider: [facility] [Provider Group] - Follow up in 3-5 days [facility] [Provider Group] - Follow up in 3-5 days Notes: 33-year-old female presents with vaginal discharge, odor, intermittent bleeding for the past couple days. Patient denies any dysuria, frequency, fever, abdominal pain, pelvic pain or nausea/vomiting, diarrhea, constipation. Patient states she has had similar discharge in the past and was diagnosed with bacterial vaginosis. Patient does not think she has been exposed to an STD but would like to be treated for gonorrhea chlamydia. TRAVEL OUTSIDE OF THE [place] IN LAST 30 DAYS: No - Related Data Allergies/Adverse Reactions: No Known Allergies Allergy (Verified 09/25/18 22:37) Past Medical History - General Last Menstrual Period: May 2019 - Social History Smoking Status: Unknown if Ever Smoked Family History: Reviewed & Not Pertinent Patient has suicidal ideation: No Patient has homicidal ideation: No Renal/ Medical History: Denies: Hx Peritoneal Dialysis Past Surgical History: Reports: Hx Gynecologic Surgery Review of Systems - Review of Systems Notes: Constitutional: Negative for fever. HENT: Negative for sore throat. Eyes: Negative for visual changes. Cardiovascular: Negative for chest pain. Respiratory: Negative for shortness of breath. Gastrointestinal: Negative for abdominal pain, vomiting or diarrhea. Genitourinary: Positive for vaginal discharge and odor. Negative for dysuria. Musculoskeletal: Negative for back pain. Skin: Negative for rash. Neurological: Negative for headaches, weakness or numbness. 10 point ROS negative except as marked above and in HPI. Physical Exam - Vital signs Vitals: Temp Pulse Resp BP Pulse Ox 97.8 F 84 16 131/87 H 100 07/08/19 13:03 07/08/19 13:03 07/08/19 13:03 07/08/19 13:03 07/08/19 13:03 - Notes Notes: GENERAL: Well-appearing, well-nourished and in no acute distress. HEAD: Atraumatic, normocephalic. EYES: Extraocular movements intact, sclera anicteric, conjunctiva are normal. NECK: Normal range of motion, supple without lymphadenopathy or JVD. LUNGS: Breath sounds clear to auscultation bilaterally and equal. No wheezes rales or rhonchi. HEART: Regular rate and rhythm without murmurs, rubs or gallops. ABDOMEN: Soft, nontender. No guarding, no rebound. No masses appreciated. : White vaginal discharge EXTREMITIES: Normal range of motion, no pitting or edema. No clubbing or cyanosis. NEUROLOGICAL: Cranial nerves II through XII grossly intact. Normal speech, normal gait. PSYCH: Normal mood, normal affect. SKIN: Warm, Dry, normal turgor, no rashes or lesions noted. Course - Re-evaluation Re-evalutation: 07/08/19 33 y/o female presents with vaginal discharge and odor. No UTI symptoms. Well appearing, nontoxic. Abd soft, nontender. Exam consistent with BV. Treated for gonorrhea/chlamdyia prophylactically. Pt given prescription for Flagyl and follow up with obgyn. Strict return precautions given. All questions/concerns addressed prior to discharge. - Vital Signs Vital signs: Temp Pulse Resp BP Pulse Ox 97.8 F 84 16 131/87 H 100 07/08/19 13:03 07/08/19 13:03 07/08/19 13:03 07/08/19 13:03 07/08/19 13:03 - Laboratory Laboratory results interpreted by me: 07/08/19 13:16 Urine Ketones TRACE H Urine Ascorbic Acid 40 H Discharge - Discharge Clinical Impression: Bacterial vaginosis, Vaginal discharge Condition: Stable Disposition: HOME, SELF-CARE Instructions: Vaginosis, Bacterial ([facility]) Additional Instructions: Your work-up showed bacterial vaginosis. Please take antibiotics as prescribed and finish all doses even if you feel better. Do not drink alcohol while taking as it will make you really sick. We also tested you for gonorrhea and chlamydia and these results will take a couple hours to come back. We will call you if either are positive. We did treat you for both. Your urine test did not show a urinary tract infection. Please follow-up with your primary care doctor or 1 of the clinics listed in 3 to 5 days. Return to ER for any worsening symptoms, including worsening on discharge, abdominal pain, pelvic pain, nausea/vomiting, diarrhea/constipation, urinary symptoms, fever, or any other symptoms that are concerning to you. Prescriptions: Metronidazole [Flagyl 500 mg Tablet] 500 mg PO BID #14 tablet Forms: Return to Work Referrals: [facility] [Provider Group] - Follow up in 3-5 days [facility] [Provider Group] - Follow up in 3-5 days
[2019-07-08 14:46] VITALS: BP 117/83
[2019-07-08 15:32] LABS: CHLAM PCR NOT DETECTED (NOT DETECT)
== END 2019-07-08 14:47 | disposition home or self-care (01) ==
LOC: ER 12:54
DX: N76.0 Acute vaginitis (principal); B96.89 Other specified bacterial agents as the cause of diseases classified elsewhere
CPT/HCPCS: 99283; 96372; 87210; 81025; 81001; 87491; 87591; J0696

== ENCOUNTER 2019-09-10 17:07 | Emergency (ER) | payer SELFPAY ==
[2019-09-10 17:14] VITALS: BP 140/85
--- NOTE | 2019-09-10 17:53 | ER Document Report ---
HPI - HPI Patient complains to provider of: Unable to sleep Time Seen by Provider: 09/10/19 17:44 Onset: Just prior to arrival Pain Level: 0 Context: 34-year-old female with history anxiety and panic attacks presents emergency department with reports that she has been unable to sleep today. She denies suicidal or homicidal ideations. Reports history of anxiety. She reports she just did not feel good so she came to the ER. She denies fever vomiting diarrhea. Denies pain with void. Denies . Reports she has Deppe shot every month. Associated Symptoms: None Exacerbated by: Denies Relieved by: Denies Similar symptoms previously: Yes Recently seen / treated by doctor: No - REPRODUCTIVE Reproductive: DENIES: : Past Medical History - General Information source: Patient Last Menstrual Period: Depo - Social History Smoking Status: Never Smoker Chew tobacco use (# tins/day): No Frequency of alcohol use: Social Drug Abuse: None Lives with: Family Family History: Reviewed & Not Pertinent Patient has suicidal ideation: No Patient has homicidal ideation: No Renal/ Medical History: Denies: Hx Peritoneal Dialysis Psychiatric Medical History: Reports: Hx Anxiety Past Surgical History: Reports: Hx Gynecologic Surgery Vertical Provider Document - CONSTITUTIONAL Agree With Documented VS: Yes Exam Limitations: No Limitations General Appearance: WD/WN, No Apparent Distress - INFECTION CONTROL TRAVEL OUTSIDE OF THE [place] IN LAST 30 DAYS: No - HEENT HEENT: Atraumatic, Normocephalic. negative: Conjuctival Injection - NECK Neck: Normal Inspection, Supple - RESPIRATORY Respiratory: Breath Sounds Normal, No Respiratory Distress - CARDIOVASCULAR Cardiovascular: Regular Rate, Regular Rhythm - GI/ABDOMEN Gastrointestinal: Abdomen Soft, Abdomen Non-Tender - MUSCULOSKELETAL/EXTREMETIES Musculoskeletal/Extremeties: MAEW, FROM - NEURO Level of Consciousness: Awake, Alert, Appropriate Motor/Sensory: No Motor Deficit - DERM Integumentary: Warm, Dry Course - Re-evaluation Re-evalutation: 09/10/19 18:00 34-year-old female with history anxiety presents emergency department complaints of anxiety. We discussed techniques to help her sleep. We also discussed [id number] aids to help her sleep. Patient also reports she takes Vistaril. Patient denies suicidal homicidal ideations. Patient reports she feels safe at home. Patient was provided with written resource information for community mental health resources. She was also instructed to return for any concerns. She verbalized understanding to all instructions. - Vital Signs Vital signs: Temp Pulse Resp BP Pulse Ox 98 F 89 16 140/85 H 100 09/10/19 17:12 09/10/19 17:12 09/10/19 17:12 09/10/19 17:12 09/10/19 17:12 Discharge - Discharge Clinical Impression: Anxiety Condition: Stable Disposition: HOME, SELF-CARE Instructions: Anxiety ([facility]) Additional Instructions: *You have been evaluated for anxiety *Follow-up with behavioral health for counseling and community resources *Take medication as prescribed *Return to ED for worsening condition, changes, needs Monitor your blood pressure. Your blood pressure was elevated today. This may be because you were anxious, in pain or because you need medication. It is important to follow up with your primary care provider for full evaluation. Prescriptions: Hydroxyzine Pamoate [Vistaril 25 mg Capsule] 25 mg PO QHS #15 capsule Forms: Elevated Blood Pressure
== END 2019-09-10 17:59 | disposition home or self-care (01) ==
LOC: ER 17:07
DX: F41.9 Anxiety disorder, unspecified (principal); G47.00 Insomnia, unspecified
CPT/HCPCS: 99283